=== PATIENT | male | born 1950 | race Caucasian/White ===

== ENCOUNTER 2019-05-28 08:04 | Observation (INO) ==
--- NOTE | 2019-05-28 08:16 | Emergency Department Note ---
ED Disposition Clinical Impression: Acute pain of right knee, Morbid obesity, Intractable pain Sprain of right knee Qualifiers: Encounter type: initial encounter Involved ligament of knee: unspecified ligament Qualified Code(s): S83.91XA - Sprain of unspecified site of right knee, initial encounter Fall with injury Qualifiers: Encounter type: initial encounter Qualified Code(s): W19.XXXA - Unspecified fall, initial encounter Disposition: Admitted as Observation Condition on Discharge: Good Referrals: Dionte Nice MD [Staff Physician] - Time of Disposition: 09:16 - Critical Care Critical Care Time: No Attestation: On , the high probability of a clinically significant, sudden or life threatening deterioration of the following system(s) required my full and direct attention, intervention and personal management. The time I documented below is in addition to time spent performing reported procedures but includes the following listed in this critical care notation. Medical Decision Making - Medical Records Medical records reviewed: Yes: I reviewed the patient's medical records. - Zack Inquiry Pt receiving controlled substance: No Zack was queried for this patient: No Vital Signs: 05/28/19 08:05 05/28/19 08:22 Temperature 97.8 F Temperature Source Oral Pulse Rate [Right Radial] 111 H 98 H Respiratory Rate 20 Blood Pressure [Right Arm] 139/62 130/74 Blood Pressure Mean [Right Arm] 87 92 Blood Pressure Source [Right Arm] Automatic Cuff Automatic Cuff Blood Pressure Position [Right Arm] Sitting Supine 02 Sat by Pulse Oximetry 96 94 L Oxygen Delivery Method Room Air Room Air Orders (Tests/Meds): ED MEDICATIONS Discontinued Medications Generic Name Dose Route Start Last Admin Trade Name Freq PRN Reason Stop Dose Admin Naproxen 500 mg 05/28/19 08:50 05/28/19 09:03 Naprosyn 500mg Tablet PO 05/28/19 08:51 500 mg ONCE ONE Administration - Radiology Data #1 Image(s): Knee Image Reviewed: Yes I reviewed the patient's radiology image 08:42 Right knee x-ray preliminary reading by myself: No cortical changes/fracture noted; decreased joint space. Medical Decision Narrative: 08:19 Pt evaluated. X-rays of chest, pelvis and right knee ordered. 08:30 Pt refusing CXR and pelvis x-rays. Orders cancelled in light of pt's protest. 08:43 I have reviewed x-ray of right knee and no acute findings noted. Clinically, pt has sprained his knee and may possibly have meniscal injury. He is not a candidate for a knee immobilizer. I have ordered Naproxen 500 mg PO for pt at this time. Pt is unable to weight bear/ambulate on that right knee and is therefore bed ridden at this time. I will discuss case with his PCP Dr. Nice regarding care plan. 09:04 I have discussed case with Dr. Nice and he has asked that I get hold of care management to evaluate this patient for direct placement to a care facility. 09:17 [facility] care management is recommending that this patient be admitted to the hospital for PT evaluation; and then further follow-up with his [employer] insurance regarding possible short-term placement. I have contacted Dr. Nice again regarding admission. Fall HPI - General Chief Complaint: Fall Stated Complaint: fall, pain Time Seen by Provider: 05/28/19 08:05 Mode of Arrival: EMS Source of Information: Patient Limitations: No Limitations Description of Symptoms (Recalled from ER Triage Doc. by RN): Pt reports 2 falls within the past week. Pt reports bill knee pain, especially his R knee, R hip pain and soo elbow pain. Pt reports he is tripping causing him to fall. - History of Present Illness HPI Narrative: Pt is here in the ER from home by ambulance for evaluation c/o left knee pain. Pt states that he fell at home about 4 a.m. trying to ambulate with crutches. Pt apparently fell 2 weeks ago at home, and strained his right knee at that time. He has been using crutches since that time. He did not see a health provider after that fall. He denies head injury, neck pain, chest pain, sob, abdominal pain, pelvis pain, hip pain. Only complaint is bilateral right knee pain. - Related Data Allergies Allergy/AdvReac Type Severity Reaction Status Date / Time No Known Allergies Allergy Verified 05/28/19 08:14 [facility] History - Hepatitis A Screen Drug use history?: No High risk sexual behaviors?: No History of sexually transmitted infection?: No Currently employed?: No Childcare worker?: No Do you have indoor plumbing?: Yes Do you have electricity?: Yes Attestation statement:: This patient has been screened for Hepatitis A risk factors. I have reviewed the patient's past medical history: Yes Medical History: Reports:: Diabetes Mellitus Type 2 - Social History Alcohol Intake: never Occupational Status: other ROS Obtained: Yes All systems reviewed & no additional complaints - Constitutional Constitutional: Reports system reviewed and no additional complaints, except as docu - Eyes Eyes: Reports system reviewed and no additional complaints, except as docu - ENT Ears, Nose, Mouth, and Throat: Reports system reviewed and no additional complaints, except as docu - Cardiovascular Cardiovascular: Reports system reviewed and no additional complaints, except as docu - Respiratory Respiratory: Yes system reviewed and no additional complaints, except as docu - Gastrointestinal Gastrointestingal: Reports: system reviewed and no additional complaints, except as docu - Genitourinary Male Genitourinary: Reports system reviewed and no additional complaints, except as docu - Musculoskeletal Musculoskeletal: Reports system reviewed and no additional complaints, except as docu, Reports as per HPI, Denies back pain, Denies deformity, Denies joint swelling, Denies neck pain, Denies numbness, Reports other (right knee pain) - Integumentary/Breasts Skin/Breast: Reports system reviewed and no additional complaints, except as docu - Neurologic Neurologic: Reports system reviewed and no additional complaints, except as docu - Endocrine Endocrine: Reports system reviewed and no additional complaints, except as docu - Hematologic/Lymphatic Henatologic/Lymphatic: Reports system reviewed and no additional complaints, except as docu - Allergic/Immunologic Allergic/Immunologic: Reports system reviewed and no additional complaints, except as docu Physical Exam - General General appearance: alert, in no apparent distress, obese (morbidly) - Head Head exam: atraumatic, normocephalic, normal inspection - Eye Eye exam: Present: PERRL, EOMI - ENT ENT exam: Present: mucous membranes moist, other (No otic or nasal discharge.) - Neck Neck exam: Present: trachea midline - Chest Chest inspection: Present: normal inspection, symmetric chest wall rise - Respiratory Respiratory exam: Present: normal lung sounds bilaterally, respiratory distress. Absent: wheezes - Cardiovascular Cardiovascular exam: Present: regular rate, normal heart sounds - Abdominal Exam Abdominal exam: Present: soft, normal bowel sounds. Absent: tenderness, guarding, rebound, rigidity - Extremities Exam Extremities exam: Present: normal capillary refill, other (Pelvis: stable, no rock or crepitus. Right knee: (+) MJL and LJL pain. No crepitus or deformity noted. No patella pain on palpation. No erythema or contusion. Negative Audra's test. No valgus or varus deformities or laxity.). Absent: calf tenderness - Back Exam Back exam: Absent: tenderness - Neurological Exam Neurological exam: Present: alert, oriented X3, CN II-XII intact - Psychiatric Psychiatric exam: Present: normal affect, normal mood - Skin Skin exam: Present: warm, dry, intact. Absent: rash, erythema
[2019-05-28 09:52] LABS: Basophils # 0.1 K/mm3 (0-0.2); Basophils % 0.7 % (0.1-2.0); Eosinophils # 0.3 K/mm3 (0.0-0.4); Eosinophils % 3.6 % (0.1-12.0); Hematocrit 35.7 % (42.0-52.0); Hemoglobin 10.4 g/dL (14.1-18.0); Lymphocytes # 1.3 K/mm3 (0.7-4.5); Mean Corpuscular HGB Conc 29.2 g/dL (31.8-35.4); Mean Corpuscular Volume 84.9 fl (80-94); Mean Platelet Volume 7.6 fl (7.4-10.4); Monocytes # 0.5 K/mm3 (0.1-1.0); Monocytes % 5.9 % (1.7-9.3); Neutrophils # 5.5 K/mm3 (1.8-7.8); Neutrophils % 72.8 % (37.0-80.0); Platelet Count 181 K/mm3 (142-424); Red Blood Count 4.21 M/mm3 (4.60-6.20); Red Cell Distribution Width 15.8 % (11.5-17.5); White Blood Count 7.6 K/mm3 (4.8-10.8)
[2019-05-28 10:12] LABS: Albumin/Globulin Ratio 0.7 (1.1-1.8); Anion Gap 14.2 mEq/L (5-15); Bilirubin,Total 0.4 mg/dL (0.2-1.0); Calcium 8.7 mg/dL (8.5-10.1); Globulin 4.4 gm/dl (1.3-3.2); Total Protein,Serum 7.4 gm/dL (6.4-8.2)
--- NOTE | 2019-05-28 10:27 | Pharmacy Consult Notes ---
[facility] Pharmacy VTE Monitoring - Patient Demographics Admission date: 05/28/19 Report Date: 05/28/19 Time: 10:27 Allergies/Adverse Reactions: Patient Allergies No Known Allergies Allergy (Verified 05/28/19 08:14) Height: 1.88 m Weight: 196.2 kg Patient Problems: Current Active Problems Acute pain of right knee (Acute) Sprain of right knee (Acute) Fall with injury (Acute) Morbid obesity (Acute) Intractable pain (Acute) - VTE Risk Labs: VTE Related Lab Results Hgb 10.4 g/dL (14.1-18.0) L 05/28/19 09:35 Hct 35.7 % (42.0-52.0) L 05/28/19 09:35 Plt Count 181 K/mm3 (142-424) 05/28/19 09:35 BUN 17 mg/dL (7-18) 05/28/19 09:35 Creatinine 1.10 mg/dL (0.70-1.30) 05/28/19 09:35 Estimated Creat Clear 74 mL/min (50-200) 05/28/19 09:35 Was VTE Risk Assessment Performed: Yes VTE Score: 5 VTE Risk Level: Low Risk - Prophylaxis VTE Prophylaxis Ordered?: Yes Types of VTE Prophylaxis: TEDS Knee High Location of Applied Device: Bilateral Lower Extremeties
[2019-05-29 06:13] LABS: Microscopic, Urine URINE MICROSCOPIC (MICROSCOPIC)
[2019-05-29 06:22] LABS: Appearance,Urine CLEAR (Clear); Bilirubin,Urine Negative (Negative); Blood, Urine Negative (Negative); Color,Urine YELLOW (Yellow); Glucose,Urine (UA) Negative (Negative); Ketones,Urine Negative (Negative); Leukocyte Esterase,Urine Negative (Negative); Protein,Urine Negative (Negative); Urobilinogen,Urine 0.2 EU/dl (0.2)
--- NOTE | 2019-05-29 08:32 | H&P/Discharge Summary ---
<Urvashi Ayala - Last Filed: 05/29/19 08:26> General - General Admission date:: 05/28/19 Discharge date: 05/29/19 *Admission Date: 05/28/19 *Chief complaint: Right knee pain *History of present illness: Mr. 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 after falling 3 times in the past 3 days and hurting his right knee. The first time he fell 3 days ago there was no trauma. The second time he tripped over something in his apartment and fell. The third time his right knee gave away. EMS did come to his home and helped him after the falls. He requested to come to the emergency room after the third fall. He states he could not walk. He could not even go to the bathroom. He does have a history of falling about 3 weeks ago. He was walking with crutches with resolution of the right knee pain. And then he began to fall again. X-ray of the right knee in the ER revealed no fracture. He was admitted for pain control and further evaluation. Since admission patient states he has been able to walk after receiving the pain medicine. He has been using a walker and feels he has been very stable. He is eating well. He did vomit once yesterday after eating fish. After vomiting he had no further nausea. He is voiding QS. And he describes controlled pain of the right knee. [facility] History Medical History: Reports:: Diabetes Mellitus Type 2, Hyperlipidemia, Hypertension *Have you ever received a pneumonia vaccine?: No *Have you received a flu vaccine this season?: No Other Medical History: Reports: Anemia, Cataracts, Glaucoma Comment: Several right surgeries - *Social History Alcohol Intake: never *Occupational Status:: retired, disabled, other Household Members: family *Travel in the last 8 weeks: None Family Hx:: Cancer, Diabetes, Hypertension Review of Systems - Constitutional Denies headache(s), Denies weakness - Eyes Denies change in vision Comments: Blind in the right eye - ENT Denies ear pain, Denies headache(s), Denies sore throat - *Cardiovascular Reports leg swelling (Right legs sometimes swells for which she takes Lasix as needed), Denies chest pain, Denies shortness of breath - *Respiratory Denies chest congestion, Denies cough, Denies shortness of breath - *Gastrointestinal Denies abdominal pain, Denies bloating, Denies change in bowel habits, Denies heartburn, Denies heartburn, Denies vomiting blood, Denies black, tarry stools, Denies nausea, Denies vomiting Comments: Does see blood in his stools at times and relates this to his hemorrhoids - *Musculoskeletal Reports joint pain (Right knee) Comments: States he uses a walker - Integumentary/Breasts Comments: History of cellulitis of the right leg - *Neurologic Denies seizure-like activity, Denies numbness, Denies dizziness Exam Vital signs and Labs for Last 24 Hours: Temp Pulse Resp BP Pulse Ox 97.9 F 43 L 18 136/53 L 93 L 05/29/19 07:54 05/29/19 07:54 05/29/19 07:54 05/29/19 07:54 05/29/19 07:54 Laboratory Results - last 24 hr 05/28/19 09:35: WBC 7.6, RBC 4.21 L, Hgb 10.4 L, Hct 35.7 L, MCV 84.9, MCH 24.8 L, MCHC 29.2 L, RDW 15.8, Plt Count 181, MPV 7.6, Neut % (Auto) 72.8, Lymph % (Auto) 17.0, [place] % (Auto) 5.9, Eos % (Auto) 3.6, Baso % (Auto) 0.7, Neut # (Auto) 5.5, Lymph # (Auto) 1.3, [place] # (Auto) 0.5, Eos # (Auto) 0.3, Baso # (Auto) 0.1 05/28/19 09:35: Sodium 142, Potassium 5.2 H, Chloride 103, Carbon Dioxide 30, Anion Gap 14.2, BUN 17, Creatinine 1.10, Estimated Creat Clear 74, Estimated GFR 66, Est GFR ( Amer) 80, Glucose 145 H, Calcium 8.7, Total Bilirubin 0.4, AST 8 L, ALT 8 L, Alkaline Phosphatase 115, Total Protein 7.4, Albumin 3.0 L, Globulin 4.4 H, Albumin/Globulin Ratio 0.7 L, Lipase 149 05/28/19 12:09: POC Glucose 137 H 05/28/19 16:03: POC Glucose 166 H 05/28/19 20:12: POC Glucose 164 H 05/29/19 05:51: POC Glucose 169 H 05/29/19 06:00: Urine Color Yellow, Urine Appearance Clear, Urine pH 6.0, Ur Specific [place] 1.020, Urine Protein Negative, Urine Glucose (UA) Negative, Urine Ketones Negative, Urine Blood Negative, Urine Nitrate Negative, Urine Bilirubin Negative, Urine Urobilinogen 0.2, Ur Leukocyte Esterase Negative, Urine RBC 5-10, Urine WBC 3-5, Ur Squamous Epith Cells 3-5, Urine Bacteria None I & O for Last 24 hours: Intake & Output 05/26/19 05/27/19 05/28/19 05/29/19 11:59 11:59 11:59 11:59 Intake Total 1820 / 1820 Output Total 600 / 600 Balance 1220 / 1220 Weight 432 lb 8.751 oz 435 lb Radiology Reports for the Last 24 Hours: 05/28/2019 x-ray of the right knee IMPRESSION: Minor degenerative changes as noted, no acute fracture seen - Constitutional no acute distress, morbidly obese Comments: Sitting in bedside recliner. Appears comfortable. - *Routine HEENT Exam Head: Present: normocephalic, atraumatic Eye: Present: PERRL. Absent: conjunctival icterus, scleral injection ENT: Present: mucous membranes moist, oropharynx clear - *Routine Neck Exam Present: supple. Absent: carotid bruit, lymphadenopathy, thyromegaly - *Routine Respiratory Exam Present: CTA bilaterally (Anteriorly and posteriorly) - *Routine Cardiovascular Exam Present: RRR - *Routine Abdominal Exam Present: soft, normoactive bowel sounds, obese. Absent: tenderness - *Routine Extremities Exam Present: edema (Bilateral pitting). Absent: calf tenderness - *Routine Neurological Exam Present: alert, oriented X3 Hospital Course Hospital Course: On admission patient was started on [place] 5/325. This controlled his pain and he was able to walk with a walker without difficulty. He felt very steady and was able to walk to the bathroom with only standby observation. He felt he was ready to go home. Patient will be discharged home with follow-up with Dr. Nice in the office. He will continue with his home meds as per reconciliation sheet with addition of pain medicine. He was instructed to use his walker at home. Results Labs on day of discharge: Labs from last 24 hours 05/29/19 05/29/19 05/28/19 06:00 05:51 20:12 WBC RBC Hgb Hct MCV MCH MCHC RDW Plt Count MPV Neut % (Auto) Lymph % (Auto) [place] % (Auto) Eos % (Auto) Baso % (Auto) Neut # (Auto) Lymph # (Auto) [place] # (Auto) Eos # (Auto) Baso # (Auto) Sodium Potassium Chloride Carbon Dioxide Anion Gap BUN Creatinine Estimated Creat Clear Estimated GFR Est GFR ( Amer) Glucose POC Glucose 169 H 164 H Calcium Total Bilirubin AST ALT Alkaline Phosphatase Total Protein Albumin Globulin Albumin/Globulin Ratio Lipase Urine Color Yellow Urine Appearance Clear Urine pH 6.0 Ur Specific [place] 1.020 Urine Protein Negative Urine Glucose (UA) Negative Urine Ketones Negative Urine Blood Negative Urine Nitrate Negative Urine Bilirubin Negative Urine Urobilinogen 0.2 Ur Leukocyte Esterase Negative Urine RBC 5-10 Urine WBC 3-5 Ur Squamous Epith Cells 3-5 Urine Bacteria None 05/28/19 05/28/19 05/28/19 16:03 12:09 09:35 WBC RBC Hgb Hct MCV MCH MCHC RDW Plt Count MPV Neut % (Auto) Lymph % (Auto) [place] % (Auto) Eos % (Auto) Baso % (Auto) Neut # (Auto) Lymph # (Auto) [place] # (Auto) Eos # (Auto) Baso # (Auto) Sodium 142 Potassium 5.2 H Chloride 103 Carbon Dioxide 30 Anion Gap 14.2 BUN 17 Creatinine 1.10 Estimated Creat Clear 74 Estimated GFR 66 Est GFR ( Amer) 80 Glucose 145 H POC Glucose 166 H 137 H Calcium 8.7 Total Bilirubin 0.4 AST 8 L ALT 8 L Alkaline Phosphatase 115 Total Protein 7.4 Albumin 3.0 L Globulin 4.4 H Albumin/Globulin Ratio 0.7 L Lipase 149 Urine Color Urine Appearance Urine pH Ur Specific [place] Urine Protein Urine Glucose (UA) Urine Ketones Urine Blood Urine Nitrate Urine Bilirubin Urine Urobilinogen Ur Leukocyte Esterase Urine RBC Urine WBC Ur Squamous Epith Cells Urine Bacteria 05/28/19 09:35 WBC 7.6 RBC 4.21 L Hgb 10.4 L Hct 35.7 L MCV 84.9 MCH 24.8 L MCHC 29.2 L RDW 15.8 Plt Count 181 MPV 7.6 Neut % (Auto) 72.8 Lymph % (Auto) 17.0 [place] % (Auto) 5.9 Eos % (Auto) 3.6 Baso % (Auto) 0.7 Neut # (Auto) 5.5 Lymph # (Auto) 1.3 [place] # (Auto) 0.5 Eos # (Auto) 0.3 Baso # (Auto) 0.1 Sodium Potassium Chloride Carbon Dioxide Anion Gap BUN Creatinine Estimated Creat Clear Estimated GFR Est GFR ( Amer) Glucose POC Glucose Calcium Total Bilirubin AST ALT Alkaline Phosphatase Total Protein Albumin Globulin Albumin/Globulin Ratio Lipase Urine Color Urine Appearance Urine pH Ur Specific [place] Urine Protein Urine Glucose (UA) Urine Ketones Urine Blood Urine Nitrate Urine Bilirubin Urine Urobilinogen Ur Leukocyte Esterase Urine RBC Urine WBC Ur Squamous Epith Cells Urine Bacteria DS: Diagnosis - Discharge Diagnosis (1) Sprain of right knee Status: Acute (2) Acute pain of right knee Status: Acute (3) Fall with injury Status: Acute (4) Intractable pain Status: Acute (5) Morbid obesity Status: Chronic Discharge Plan - Patient Discharge Instructions Patient Instructions: Overweight in Adults, DI for Chronic Pain -- Adult, DI for Knee Pain - Follow up Plan Follow up with: Dionte Nice MD [Primary Care Provider] - 06/05/19 2:00 pm Disposition: Home, Self-Senior Care Medications: Home Medications Medication Instructions Recorded Confirmed Type Insulin Aspart Prot/Insuln Asp 25 unit SQ BID 05/28/19 05/28/19 History [Insulin Aspart Prot-Insuln Asp] Metformin HCl [Metformin 1000mg 500 mg PO TID 05/28/19 05/28/19 History Tablets] Simvastatin 40 mg PO HS 05/28/19 05/28/19 History lisinopriL [Lisinopril 20mg Tab] 20 mg PO DAILY 05/28/19 05/28/19 History Diclofenac Sodium [Diclofenac 75mg 75 mg PO BID #60 tab 05/29/19 Rx Tab] Hydrocod/Acet 5/325 mg [[place] 1 tab PO TID PRN #24 tab 05/29/19 Rx 5/325mg tablet] Prescriptions/Medication Reconciliation: New Hydrocod/Acet 5/325 mg [[place] 5/325mg tablet] 1 tab PO TID PRN #24 tab PRN Reason: Moderate To Severe Pain Diclofenac Sodium [Diclofenac 75mg Tab] 75 mg PO BID #60 tab Continued Simvastatin 40 mg PO HS Insulin Aspart Prot/Insuln Asp [Insulin Aspart Prot-Insuln Asp] 25 unit SQ BID Metformin HCl [Metformin 1000mg Tablets] 500 mg PO TID lisinopriL [Lisinopril 20mg Tab] 20 mg PO DAILY - Problem Reconciliation Problems Reviewed?: Yes <Dionte Nice - Last Filed: 05/29/19 17:14> General - General Admission date:: 05/28/19 Exam Vital signs and Labs for Last 24 Hours: Temp Pulse Resp BP Pulse Ox 97.9 F 43 L 18 136/53 L 93 L 05/29/19 07:54 05/29/19 07:54 05/29/19 07:54 05/29/19 07:54 05/29/19 08:00 Laboratory Results - last 24 hr 05/28/19 20:12: POC Glucose 164 H 05/29/19 05:51: POC Glucose 169 H 05/29/19 06:00: Urine Color Yellow, Urine Appearance Clear, Urine pH 6.0, Ur Specific [place] 1.020, Urine Protein Negative, Urine Glucose (UA) Negative, Urine Ketones Negative, Urine Blood Negative, Urine Nitrate Negative, Urine Bilirubin Negative, Urine Urobilinogen 0.2, Ur Leukocyte Esterase Negative, Urine RBC 5-10, Urine WBC 3-5, Ur Squamous Epith Cells 3-5, Urine Bacteria None I & O for Last 24 hours: Intake & Output 05/27/19 05/28/19 05/29/19 05/30/19 11:59 11:59 11:59 11:59 Intake Total 1820 / 1820 Output Total 600 / 600 Balance 1220 / 1220 Weight 432 lb 8.751 oz 435 lb Results Labs on day of discharge: Labs from last 24 hours 05/29/19 05/29/19 05/28/19 06:00 05:51 20:12 POC Glucose 169 H 164 H Urine Color Yellow Urine Appearance Clear Urine pH 6.0 Ur Specific [place] 1.020 Urine Protein Negative Urine Glucose (UA) Negative Urine Ketones Negative Urine Blood Negative Urine Nitrate Negative Urine Bilirubin Negative Urine Urobilinogen 0.2 Ur Leukocyte Esterase Negative Urine RBC 5-10 Urine WBC 3-5 Ur Squamous Epith Cells 3-5 Urine Bacteria None DS: Diagnosis - Discharge Diagnosis (1) Sprain of right knee Status: Acute (2) Acute pain of right knee Status: Acute (3) Fall with injury Status: Acute (4) Intractable pain Status: Acute (5) Morbid obesity Status: Chronic Discharge Plan - Problem Reconciliation Problems Reviewed?: Yes - Additional Information Additional Information: Patient seen and examined. Concur with assessment and plan for discharge. He declines home PT.
== END 2019-05-29 10:45 | disposition home or self-care (01) ==
LOC: ER 08:04 → 2ND 08:04
PROVIDERS: ADMIT Family Medicine; ATTEND Family Medicine
CPT/HCPCS: 73562; 80053; 81001; 82962; 83690; 85025; 96374; 99284; G0378

== ENCOUNTER 2019-05-31 23:32 | Observation (INO) ==
--- NOTE | 2019-05-31 23:49 | Emergency Department Note ---
ED Disposition Clinical Impression: Acute hyperkalemia, NIDA (acute kidney injury), Morbid obesity A-fib Qualifiers: Atrial fibrillation type: unspecified Qualified Code(s): I48.91 - Unspecified atrial fibrillation Disposition: Admitted as Observation Condition on Discharge: Fair Instructions: DI for Diarrhea and Traveler's Diarrhea -- Adult, DI for Diarrhea and Traveler's Diarrhea -- Child, DI for Nausea -- Adult, DI for Nausea -- Child Referrals: Provider,Referral, [Primary Care Provider] - - Critical Care Critical Care Time: No Attestation: On 05/31/19, the high probability of a clinically significant, sudden or life threatening deterioration of the following system(s) required my full and direct attention, intervention and personal management. The time I documented below is in addition to time spent performing reported procedures but includes the following listed in this critical care notation. Medical Decision Making - Medical Records Medical records reviewed: Yes: I reviewed the patient's medical records. - Zack Inquiry Pt receiving controlled substance: No Vital Signs: 05/31/19 23:34 Temperature 98.2 F Temperature Source Oral Pulse Rate [Right Brachial] 99 H Respiratory Rate 26 H Blood Pressure [Right Arm] 109/53 L Blood Pressure Mean [Right Arm] 71 Blood Pressure Source [Right Arm] Automatic Cuff Blood Pressure Position [Right Arm] Sitting 02 Sat by Pulse Oximetry 97 Oxygen Delivery Method Room Air - Lab Data Lab results reviewed: Yes: I reviewed the patient's lab results. Lab Results 05/31/19 23:45: WBC 7.7, RBC 4.21 L, Hgb 10.5 L, Hct 36.3 L, MCV 86.2, MCH 24.9 L, MCHC 28.9 L, RDW 16.3, Plt Count 205, MPV 7.9, Neut % (Auto) 74.8, Lymph % (Auto) 14.9, [place] % (Auto) 6.3, Eos % (Auto) 3.4, Baso % (Auto) 0.6, Neut # (Auto) 5.8, Lymph # (Auto) 1.1, [place] # (Auto) 0.5, Eos # (Auto) 0.3, Baso # (Auto) 0.1 05/31/19 23:45: Sodium 135 L, Potassium 6.5 H*, Chloride 101, Carbon Dioxide 27, Anion Gap 13.5, BUN 35 H, Creatinine 1.88 H, Estimated Creat Clear 43, Estimated GFR 36 L, Est GFR ( Amer) 43 L, Glucose 148 H, Calcium 8.4 L, Total Bilirubin 0.4, AST 11 L, ALT 10 L, Alkaline Phosphatase 124 H, Troponin I < 0.02, Total Protein 7.6, Albumin 3.1 L, Globulin 4.5 H, Albumin/Globulin Ratio 0.7 L, Amylase 31, Lipase 88 06/01/19 00:30: Potassium 6.8 H* Result diagrams: 05/31/19 23:45 06/01/19 00:30 Orders (Tests/Meds): ED MEDICATIONS Generic Name Dose Route Start Last Admin Trade Name Freq PRN Reason Stop Dose Admin Sodium Chloride 1,000 mls @ 999 mls/hr 05/31/19 23:45 05/31/19 23:44 Sod Chlor 0.9% 1000ml Bag IV 06/01/19 00:45 999 mls/hr .Q1H1M EVETTE Administration Discontinued Medications Generic Name Dose Route Start Last Admin Trade Name Freq PRN Reason Stop Dose Admin Albuterol/Ipratropium 3 ml 06/01/19 00:43 06/01/19 00:52 Duoneb 3ml Neb IH 06/01/19 00:44 3 ml ONCE ONE Administration Dextrose 50 ml 06/01/19 00:42 Dextrose 50% 50ml Syringe IVP 06/01/19 00:43 ONCE ONE Insulin Human Regular 5 unit 06/01/19 00:42 Humulin R Insulin 100 Units/Ml 10ml Vial IVP 06/01/19 00:43 ONCE ONE Ondansetron HCl 4 mg 05/31/19 23:40 05/31/19 23:44 Zofran 4mg/2ml Vial IV 05/31/19 23:41 4 mg ONCE ONE Administration Sodium Polystyrene Sulfonate 15 gm 06/01/19 00:42 Kayexalate 15gm/60ml Bottle PO 06/01/19 00:43 ONCE ONE ORDERS Category Date Time Status CT abdomen pelvis wo con Stat Cat Scan 05/31/19 23:50 Ordered Troponin I Q3H Lab 06/01/19 02:45 Ordered Troponin I Q3H Lab 06/01/19 05:45 Ordered Urinalysis and Microscopic Stat Lab 06/01/19 00:04 Ordered ECG Request by /Gagandeep Stat Y 05/31/19 23:39 Ordered - ECG Data Tracing #1 Arrhythmias present: afib Ischemic changes: non-specific ST-T wave changes - Physician Consults Physician Consulted: ivania Reason -: Admission Nausea/Vomiting/Diarrhea HPI - General Chief complaint: Nausea/Vomiting/Diarrhea Stated complaint: N/V Time Seen by Provider: 05/31/19 23:45 Mode of Arrival: EMS Source of Information: Patient, EMS, Medical Record Limitations: No Limitations Description of Symptoms (Recalled from ER Triage Doc. by RN): Pt c/o n/v and constipation. No other symptoms reported at this time. - History of Present Illness HPI Narrative: pt reports not feeling well with dec po intake - pt with vomiting but no diarrhea - he had recent admit for knee pain - he has hx of diabetes and htn - he denied any hx of cardiac arrthymia MD complaint: nausea, vomiting, abdominal pain Onset (ago): day(s) Associated Abdominal Pain: Yes Location of pain: diffuse Severity: moderate Quality: cramping Consistency: intermittent Associated symptoms: denies other symptoms - Related Data Home Medications Medication Instructions Recorded Confirmed Insulin Aspart Prot/Insuln Asp 25 unit SQ BID 05/28/19 06/01/19 [Insulin Aspart Prot-Insuln Asp] Metformin HCl [Metformin 1000mg 500 mg PO TID 05/28/19 06/01/19 Tablets] Simvastatin 40 mg PO HS 05/28/19 06/01/19 lisinopriL [Lisinopril 20mg Tab] 20 mg PO DAILY 05/28/19 06/01/19 Diclofenac Sodium [Diclofenac 75mg 75 mg PO BID 06/01/19 06/01/19 Tab] Previous Rx's Medication Instructions Recorded Hydrocod/Acet 5/325 mg [[place] 1 tab PO TID PRN #24 tab 05/29/19 5/325mg tablet] Allergies Allergy/AdvReac Type Severity Reaction Status Date / Time No Known Allergies Allergy Verified 05/28/19 08:14 [facility] History - Hepatitis A Screen Drug use history?: No High risk sexual behaviors?: No History of sexually transmitted infection?: No Currently employed?: No Childcare worker?: No Do you have indoor plumbing?: Yes Do you have electricity?: Yes Attestation statement:: This patient has been screened for Hepatitis A risk factors. I have reviewed the patient's past medical history: Yes Medical History: Reports:: Diabetes Mellitus Type 2, Hyperlipidemia, Hyperten luis enrique Other Medical History: Reports: Anemia, Cataracts, Glaucoma Comment: Several right surgeries - Social History Alcohol Intake: never Occupational Status: retired, disabled, other Housing: house Household Members: family Family Hx:: Cancer, Diabetes, Hypertension ROS Obtained: Yes All systems reviewed & no additional complaints - Constitutional Constitutional: Denies fever(s) - Eyes Eyes: Denies change in vision - ENT Ears, Nose, Mouth, and Throat: Denies sore throat - Cardiovascular Cardiovascular: Denies chest pain - Respiratory Respiratory: No cough - Gastrointestinal Gastrointestingal: Reports: as per HPI, abdominal pain, nausea, vomiting. Denies: diarrhea - Genitourinary Male Genitourinary: Denies hematuria - Musculoskeletal Musculoskeletal: Reports as per HPI, Reports joint pain, Denies joint swelling, Reports limited range of motion - Integumentary/Breasts Skin/Breast: Denies rash - Neurologic Neurologic: Denies seizure-like activity Physical Exam - General General appearance: alert, obese - Head Head exam: normocephalic - Eye Eye exam: Present: PERRL, EOMI. Absent: scleral icterus - ENT ENT exam: Present: mucous membranes dry - Neck Neck exam: Present: trachea midline - Respiratory Respiratory exam: Present: other (dec bs bilat ). Absent: respiratory distress - Cardiovascular Cardiovascular exam: Present: irregular rhythm - Abdominal Exam Abdominal exam: Present: soft. Absent: rebound - Extremities Exam Extremities exam: Present: pedal edema, other (rt index finger ariella but imp roved with stimulation ) - Neurological Exam Neurological exam: Present: alert, oriented X3, CN II-XII intact - Psychiatric Psychiatric exam: Present: normal affect - Skin Skin exam: Absent: rash
[2019-05-31 23:52] LABS: Basophils # 0.1 K/mm3 (0-0.2); Basophils % 0.6 % (0.1-2.0); Eosinophils # 0.3 K/mm3 (0.0-0.4); Eosinophils % 3.4 % (0.1-12.0); Hematocrit 36.3 % (42.0-52.0); Hemoglobin 10.5 g/dL (14.1-18.0); Lymphocytes # 1.1 K/mm3 (0.7-4.5); Lymphocytes % 14.9 % (10-50); Mean Corpuscular HGB Conc 28.9 g/dL (31.8-35.4); Mean Corpuscular Volume 86.2 fl (80-94); Mean Platelet Volume 7.9 fl (7.4-10.4); Monocytes # 0.5 K/mm3 (0.1-1.0); Monocytes % 6.3 % (1.7-9.3); Neutrophils # 5.8 K/mm3 (1.8-7.8); Neutrophils % 74.8 % (37.0-80.0); Platelet Count 205 K/mm3 (142-424); Red Blood Count 4.21 M/mm3 (4.60-6.20); Red Cell Distribution Width 16.3 % (11.5-17.5); White Blood Count 7.7 K/mm3 (4.8-10.8)
[2019-06-01 00:17] LABS: Alanine Aminotransferase 10 U/L (12-78); Albumin Level 3.1 gm/dL (3.4-5.0); Albumin/Globulin Ratio 0.7 (1.1-1.8); Alkaline Phosphatase 124 U/L (46-116); Amylase 31 U/L (25-115); Anion Gap 13.5 mEq/L (5-15); Aspartate Amino Transferase 11 U/L (15-37); Bilirubin,Total 0.4 mg/dL (0.2-1.0); Blood Urea Nitrogen 35 mg/dL (7-18); Calcium 8.4 mg/dL (8.5-10.1); Carbon Dioxide 27 mmol/L (21.0-32.0); Chloride 101 mmol/L (98-107); Globulin 4.5 gm/dl (1.3-3.2); Glucose 148 mg/dL (74-106); Sodium 135 mmol/L (136-145); Total Protein,Serum 7.6 gm/dL (6.4-8.2)
[2019-06-01 07:01] LABS: Microscopic, Urine URINE MICROSCOPIC (MICROSCOPIC)
[2019-06-01 07:05] LABS: Appearance,Urine CLEAR (Clear); Bilirubin,Urine Negative (Negative); Blood, Urine Negative (Negative); Color,Urine YELLOW (Yellow); Glucose,Urine (UA) Negative (Negative); Ketones,Urine Negative (Negative); Leukocyte Esterase,Urine Negative (Negative); PH,Urine 6.5 (5.0-8.5); Protein,Urine Negative (Negative)
--- NOTE | 2019-06-01 07:08 | Pharmacy Consult Notes ---
[facility] Pharmacy VTE Monitoring - Patient Demographics Admission date: 06/01/19 Report Date: 06/01/19 Time: 07:08 Allergies/Adverse Reactions: Patient Allergies No Known Allergies Allergy (Verified 05/28/19 08:14) Height: 1.88 m Weight: 197.313 kg Patient Problems: Current Active Problems Morbid obesity (Chronic) Acute hyperkalemia (Acute) NIDA (acute kidney injury) (Acute) A-fib (Acute) - VTE Risk Labs: VTE Related Lab Results Hgb 10.5 g/dL (14.1-18.0) L 05/31/19 23:45 Hct 36.3 % (42.0-52.0) L 05/31/19 23:45 Plt Count 205 K/mm3 (142-424) 05/31/19 23:45 BUN 32 mg/dL (7-18) H 06/01/19 06:03 Creatinine 1.76 mg/dL (0.70-1.30) H 06/01/19 06:03 Estimated Creat Clear 46 mL/min (50-200) 06/01/19 06:03 VTE Score: 5 VTE Risk Level: Low Risk - Prophylaxis VTE Prophylaxis Ordered?: Yes Types of VTE Prophylaxis: TEDS Knee High Location of Applied Device: Bilateral Lower Extremeties
[2019-06-01 07:15] LABS: Bacteria,Urine Trace /lpf; Squamous Epithelial Cell,Urine Occasional #/hpf (0-5); WBC,Urine Occasional #/hpf (0-3)
[2019-06-01 07:23] LABS: Basophils % 0.6 % (0.1-2.0); Eosinophils # 0.2 K/mm3 (0.0-0.4); Eosinophils % 2.5 % (0.1-12.0); Hemoglobin 9.6 g/dL (14.1-18.0); Lymphocytes # 1.2 K/mm3 (0.7-4.5); Lymphocytes % 17.8 % (10-50); Mean Corpuscular Volume 87.1 fl (80-94); Mean Platelet Volume 8.3 fl (7.4-10.4); Monocytes # 0.4 K/mm3 (0.1-1.0); Monocytes % 6.3 % (1.7-9.3); Neutrophils # 4.9 K/mm3 (1.8-7.8); Neutrophils % 72.8 % (37.0-80.0); Platelet Count 180 K/mm3 (142-424); Red Blood Count 3.79 M/mm3 (4.60-6.20); Red Cell Distribution Width 16.2 % (11.5-17.5); White Blood Count 6.7 K/mm3 (4.8-10.8)
--- NOTE | 2019-06-01 08:33 | History & Physical Report ---
*Admission Date: 06/01/19 <Sandrine Carrillo 06/01/19 08:40> *Chief complaint: abdominal pain, vomiting, constipation <Sandrine Carrillo 06/01/19 08:40> *History of present illness: Mr. Shanks is a 69-year-old male who states he has had numerous falls in the last few weeks which has caused knee pain. He has been taking diclofenac prescription at home along with numerous other ejpy-eds-ifismrs "pain medications." When asked what medications he was taking, he said he did not know, they were just cheap [employer] pain pills. He did call into the office due to pain and states he was given a prescription for pain medication. He thinks the combination of all of this medication caused constipation and he went 5 days without a bowel movement. Yesterday he called the office and was told to take MiraLAX and Dulcolax. He states he started them but still had no bowel movement and then began vomiting. He states he vomited all day and therefore presented to the emergency room. His potassium was found to be elevated. He was admitted for observation and given Kayexalate and ant iemetics. The vomiting stopped and he has since had 3 bowel movements since admission. He states his stomach does feel better today, but is still sore in the lower quadrants. <Sandrine Carrillo 06/01/19 08:40> [facility] History I have reviewed the patient's past medical history: Yes <Sandrine Carrillo 06/01/19 08:40> Medical History: Reports:: Diabetes Mellitus Type 2, Hyperlipidemia, Hypertension Denies:: Cancer, MRSA <Sandrine Carrillo 06/01/19 08:40> *Have you ever received a pneumonia vaccine?: No <Sandrine Carrillo 06/01/19 08:40> *Have you received a flu vaccine this season?: No <Sandrine Carrillo 06/01/19 08:40> Other Medical History: Reports: Anemia, Cataracts, Glaucoma, Other (Chronic back pain, blind right eye) <Sandrine Carrillo 06/01/19 08:40> Other Surgeries: Yes: Other (eye surgery) <Sandrine Carrillo 06/01/19 08:40> Amputation: No <Sandrine Carrillo 06/01/19 08:40> - *Social History Educational Level: Attended [employer] <Sandrine Carrillo 06/01/19 08:40> Smoking Status: Never smoker <Sandrine Carrillo 06/01/19 08:40> Alcohol Intake: never <Sandrine Carrillo 06/01/19 08:40> *Occupational Status:: retired, disabled, other <Sandrine Carrillo 06/01/19 08:40> Housing: house <Sandrine Carrillo 06/01/19 08:40> Household Members: family <Sandrine Carrillo 06/01/19 08:40> *Travel in the last 8 weeks: None <Sandrine Carrillo 06/01/19 08:40> Family Hx:: Cancer, Diabetes, Hypertension <Sandrine Carrillo 06/01/19 08:40> Review of Systems - Constitutional Denies body ache(s), Denies chills, Denies fever(s) <Sandrine Carrillo 06/01/19 08:40> - Eyes Denies blurry vision, Denies double vision <Sandrine Carrillo 06/01/19 08:40> - ENT Denies nasal congestion, Denies sore throat <Sandrine Carrillo 06/01/19 08:40> - *Cardiovascular Denies chest pain, Denies shortness of breath <Sandrine Carrillo 06/01/19 08:40> - *Respiratory Denies cough, Denies shortness of breath <Sandrine Carrillo 06/01/19 08:40> - *Gastrointestinal Reports abdominal pain (lower abdomen), Reports nausea, Reports vomiting, Denies loose stools <Sandrine Carrillo 06/01/19 08:40> - *Genitourinary Denies difficulty urinating, Denies painful urination <Sandrine Carrillo 06/01/19 08:40> - *Musculoskeletal Reports joint pain (knee pain) <Sandrine Carrillo 06/01/19 08:40> - *Neurologic Reports headache(s), Reports dizziness, Denies seizure-like activity <Sandrine Carrillo 06/01/19 08:40> Meds Home Medications Medication Instructions Recorded Confirmed Type Insulin Aspart Prot/Insuln Asp 25 unit SQ BID 05/28/19 06/01/19 History [Insulin Aspart Prot-Insuln Asp] Metformin HCl [Metformin 1000mg 500 mg PO TID 05/28/19 06/01/19 History Tablets] Simvastatin 40 mg PO HS 05/28/19 06/01/19 History lisinopriL [Lisinopril 20mg Tab] 20 mg PO DAILY 05/28/19 06/01/19 History Hydrocod/Acet 5/325 mg [[place] 1 tab PO TID PRN #24 tab 05/29/19 06/01/19 Rx 5/325mg tablet] Diclofenac Sodium [Diclofenac 75mg 75 mg PO BID 06/01/19 06/01/19 History Tab] <Dionte Nice - 06/01/19 13:53> Allergies Allergy/AdvReac Type Severity Reaction Status Date / Time No Known Allergies Allergy Verified 05/28/19 08:14 <Dionte Nice - 06/01/19 13:53> Exam Vital signs and Labs for Last 24 Hours: Temp Pulse Resp BP Pulse Ox 98.1 F 91 H 20 114/58 L 94 L 06/01/19 11:12 06/01/19 11:12 06/01/19 11:12 06/01/19 11:12 06/01/19 11:12 Laboratory Results - last 24 hr 05/31/19 23:45: WBC 7.7, RBC 4.21 L, Hgb 10.5 L, Hct 36.3 L, MCV 86.2, MCH 24.9 L, MCHC 28.9 L, RDW 16.3, Plt Count 205, MPV 7.9, Neut % (Auto) 74.8, Lymph % (Auto) 14.9, [place] % (Auto) 6.3, Eos % (Auto) 3.4, Baso % (Auto) 0.6, Neut # (Auto) 5.8, Lymph # (Auto) 1.1, [place] # (Auto) 0.5, Eos # (Auto) 0.3, Baso # (Auto) 0.1 05/31/19 23:45: Sodium 135 L, Potassium 6.5 H*, Chloride 101, Carbon Dioxide 27, Anion Gap 13.5, BUN 35 H, Creatinine 1.88 H, Estimated Creat Clear 43, Estimated GFR 36 L, Est GFR ( Amer) 43 L, Glucose 148 H, Calcium 8.4 L, Total Bilirubin 0.4, AST 11 L, ALT 10 L, Alkaline Phosphatase 124 H, Troponin I < 0.02, Total Protein 7.6, Albumin 3.1 L, Globulin 4.5 H, Albumin/Globulin Ratio 0.7 L, Amylase 31, Lipase 88 06/01/19 00:30: Potassium 6.8 H* 06/01/19 02:45: Troponin I < 0.02 06/01/19 06:02: POC Glucose 139 H 06/01/19 06:03: Troponin I < 0.02 06/01/19 06:03: WBC 6.7, RBC 3.79 L, Hgb 9.6 L, Hct 33.0 L, MCV 87.1, MCH 25.3 L , MCHC 29.0 L, RDW 16.2, Plt Count 180, MPV 8.3, Neut % (Auto) 72.8, Lymph % (Auto) 17.8, [place] % (Auto) 6.3, Eos % (Auto) 2.5, Baso % (Auto) 0.6, Neut # (Auto) 4.9, Lymph # (Auto) 1.2, [place] # (Auto) 0.4, Eos # (Auto) 0.2, Baso # (Auto) 0.0 06/01/19 06:03: Sodium 137, Potassium 6.0 H, Chloride 104, Carbon Dioxide 26, Anion Gap 13.0, BUN 32 H, Creatinine 1.76 H, Estimated Creat Clear 46, Estimated GFR 39 L, Est GFR ( Amer) 47 L, Glucose 141 H, Calcium 8.0 L, Magnesium 1.9 06/01/19 06:45: Urine Color Yellow, Urine Appearance Clear, Urine pH 6.5, Ur Specific [place] 1.020, Urine Protein Negative, Urine Glucose (UA) Negative, Urine Ketones Negative, Urine Blood Negative, Urine Nitrate Negative, Urine Bilirubin Negative, Urine Urobilinogen 1.0, Ur Leukocyte Esterase Negative, Urine RBC None, Urine WBC Occasional, Ur Squamous Epith Cells Occasional, Urine Bacteria Trace 06/01/19 11:12: POC Glucose 140 H <Dionte Nice - 06/01/19 13:53> Temp Pulse Resp BP Pulse Ox 97.7 F 123 H 22 120/64 100 06/01/19 07:39 06/01/19 07:39 06/01/19 07:39 06/01/19 07:39 06/01/19 07:39 Laboratory Results - last 24 hr 05/31/19 23:45: WBC 7.7, RBC 4.21 L, Hgb 10.5 L, Hct 36.3 L, MCV 86.2, MCH 24.9 L, MCHC 28.9 L, RDW 16.3, Plt Count 205, MPV 7.9, Neut % (Auto) 74.8, Lymph % (Auto) 14.9, [place] % (Auto) 6.3, Eos % (Auto) 3.4, Baso % (Auto) 0.6, Neut # (Auto) 5.8, Lymph # (Auto) 1.1, [place] # (Auto) 0.5, Eos # (Auto) 0.3, Baso # (Auto) 0.1 05/31/19 23:45: Sodium 135 L, Potassium 6.5 H*, Chloride 101, Carbon Dioxide 27, Anion Gap 13.5, BUN 35 H, Creatinine 1.88 H, Estimated Creat Clear 43, Estimated GFR 36 L, Est GFR ( Amer) 43 L, Glucose 148 H, Calcium 8.4 L, Total Bilirubin 0.4, AST 11 L, ALT 10 L, Alkaline Phosphatase 124 H, Troponin I < 0.02, Total Protein 7.6, Albumin 3.1 L, Globulin 4.5 H, Albumin/Globulin Ratio 0.7 L, Amylase 31, Lipase 88 06/01/19 00:30: Potassium 6.8 H* 06/01/19 02:45: Troponin I < 0.02 06/01/19 06:02: POC Glucose 139 H 06/01/19 06:03: Troponin I < 0.02 06/01/19 06:03: WBC 6.7, RBC 3.79 L, Hgb 9.6 L, Hct 33.0 L, MCV 87.1, MCH 25.3 L , MCHC 29.0 L, RDW 16.2, Plt Count 180, MPV 8.3, Neut % (Auto) 72.8, Lymph % (Auto) 17.8, [place] % (Auto) 6.3, Eos % (Auto) 2.5, Baso % (Auto) 0.6, Neut # (Auto) 4.9, Lymph # (Auto) 1.2, [place] # (Auto) 0.4, Eos # (Auto) 0.2, Baso # (Auto) 0.0 06/01/19 06:03: Sodium 137, Potassium 6.0 H, Chloride 104, Carbon Dioxide 26, Anion Gap 13.0, BUN 32 H, Creatinine 1.76 H, Estimated Creat Clear 46, Estimated GFR 39 L, Est GFR ( Amer) 47 L, Glucose 141 H, Calcium 8.0 L, Magnesium 1.9 06/01/19 06:45: Urine Color Yellow, Urine Appearance Clear, Urine pH 6.5, Ur Specific [place] 1.020, Urine Protein Negative, Urine Glucose (UA) Negative, Urine Ketones Negative, Urine Blood Negative, Urine Nitrate Negative, Urine Bilirubin Negative, Urine Urobilinogen 1.0, Ur Leukocyte Esterase Negative, Urine RBC None, Urine WBC Occasional, Ur Squamous Epith Cells Occasional, Urine Bacteria Trace <Sandrine Carrillo - 06/01/19 08:40> I & O for Last 24 hours: Intake & Output 05/30/19 05/31/19 06/01/19 06/02/19 11:59 11:59 11:59 11:59 Intake Total 2602 / 2602 360 / 360 Balance 2602 / 2602 360 / 360 Weight 435 lb <Dionte Nice - 06/01/19 13:53> Intake & Output 05/29/19 05/30/19 05/31/19 06/01/19 11:59 11:59 11:59 11:59 Intake Total 2602 / 2602 Balance 2602 / 2602 Weight 435 lb <Sandrine Carrillo - 06/01/19 08:40> - Constitutional no acute distress <Sandrine Carrillo - 06/01/19 08:40> - *Routine HEENT Exam Head: Present: normocephalic <Sandrine Carrillo 06/01/19 08:40> Eye: Present: EOMI, PERRL <Sandrine Carrillo 06/01/19 08:40> ENT: Present: mucous membranes moist <Sandrine Carrillo - 01/23/20 08:40> - *Routine Neck Exam Present: supple. Absent: lymphadenopathy <Sandrine Carrillo 06/01/19 08:40> - *Routine Respiratory Exam Present: CTA bilaterally <Sandrine Carrillo 06/01/19 08:40> - *Routine Cardiovascular Exam Present: irregularly irregular <Sandrine Carrillo 06/01/19 08:40> - *Routine Abdominal Exam Present: soft, normoactive bowel sounds, tenderness (bilateral lower quadrants) <Sandrine Carrillo 06/01/19 08:40> - *Routine Extremities Exam Present: edema (bilateral LE's). Absent: cyanosis, clubbing <Sandrine Carrillo 06/01/19 08:40> - *Routine Skin Exam Present: warm. Absent: rash <Sandrine Carrillo 06/01/19 08:40> - *Routine Neurological Exam Present: alert, oriented X3 <Sandrine Carrillo 06/01/19 08:40> Assessment and Plan (1) Acute hyperkalemia Current visit: Yes Status: Acute Category: Medical Code(s): E87.5 - Hyperkalemia (2) NIDA (acute kidney injury) Current visit: Yes Status: Acute Category: Medical Code(s): N17.9 - Acute kidney failure, unspecified (3) Constipation Current visit: Yes Status: Acute Category: Medical Code(s): K59.00 - Constipation, unspecified (4) Vomiting Current visit: Yes Status: Acute Category: Medical Code(s): R11.10 - Vomiting, unspecified (5) A-fib Current visit: Yes Status: Acute Qualifiers: Atrial fibrillation type: unspecified Qualified Code(s): I48.91 - Unspecified atrial fibrillation Category: Medical Code(s): I48.91 - Unspecified atrial fibrillation (6) Acute pain of right knee Current visit: No Status: Acute Category: Medical Code(s): M25.561 - Pain in right knee (7) Morbid obesity Current visit: Yes Status: Chronic Category: Medical Code(s): E66.01 - Morbid (severe) obesity due to excess calories (8) Hypertension Current visit: Yes Status: Chronic Category: Medical Code(s): I10 - Essential (primary) hypertension (9) Type 2 diabetes mellitus Current visit: Yes Status: Chronic Category: Medical Code(s): E11.9 - Type 2 diabetes mellitus without complications (10) Hyperlipemia Current visit: Yes Status: Chronic Category: Medical Code(s): E78.5 - Hyperlipidemia, unspecified (11) Chronic renal insufficiency Current visit: Yes Status: Acute Category: Medical Code(s): N18.9 - Chronic kidney disease, unspecified <Dionte Nice - 06/01/19 13:53> (1) Constipation Current visit: Yes Status: Acute Category: Medical Code(s): K59.00 - Constipation, unspecified (2) Vomiting Current visit: Yes Status: Acute Category: Medical Code(s): R11.10 - Vomiting, unspecified (3) A-fib Current visit: Yes Status: Acute Qualifiers: Atrial fibrillation type: unspecified Qualified Code(s): I48.91 - Unspecified atrial fibrillation Category: Medical Code(s): I48.91 - Unspecified atrial fibrillation (4) NIDA (acute kidney injury) Current visit: Yes Status: Acute Category: Medical Code(s): N17.9 - Acute kidney failure, unspecified (5) Acute hyperkalemia Current visit: Yes Status: Acute Category: Medical Code(s): E87.5 - Hyperkalemia (6) Acute pain of right knee Current visit: No Status: Acute Category: Medical Code(s): M25.561 - Pain in right knee (7) Morbid obesity Current visit: Yes Status: Chronic Category: Medical Code(s): E66.01 - Morbid (severe) obesity due to excess calories (8) Hypertension Current visit: Yes Status: Chronic Category: Medical Code(s): I10 - Essential (primary) hypertension (9) Type 2 diabetes mellitus Current visit: Yes Status: Chronic Category: Medical Code(s): E11.9 - Type 2 diabetes mellitus without complications (10) Hyperlipemia Current visit: Yes Status: Chronic Category: Medical Code(s): E78.5 - Hyperlipidemia, unspecified <Sandrine Carrillo - 06/01/19 08:30> - Assessment and plan all Dx Assessment and Plan for all problems:: Patient seen and examined. Concur with above. Etiology of his hyperkalemia likely related to his renal, recent vomiting, and taking diclofenac. Potassium is improved but still elevated at 6.0. We will repeat a dose of Kayexalate and recheck his potassium this afternoon. We will check echocardiogram related to his atrial fibrillation. <Dionte Nice - 06/01/19 13:53> Patient was given Kayexalate and his potassium is improving. He has since had 3 bowel movements and his stomach feels better. His vomiting has resolved. Will discuss further care with Dr. Nice. <Sandrine Carrillo - 06/01/19 08:40>
--- NOTE | 2019-06-01 15:37 | Cardiology Report ---
APPROVED REPORT EXAM: Limited 2D Echocardiogram Ecommerce Marketing Manager: Evelyn Maddox RVT Ht: 6 ft 2 in Wt: 435lbs BSA: 3.02 BP: 114/58 mmHg Indications: Atrial Fibrillation, Diabetes, Morbid Obesity, Hyperlipidemia, Hypertension,NIDA TDS-LIMITED WINDOWS,SCANNED UPRIGHT IN CHAIR 2D Dimensions LVOT 1.55 cm (M/F) 1.5-2.5 M-Mode Dimensions RVDd 3.14 cm (0.9-2.6)LVDd 5.39 cm (3.5-5.7) LVDs 3.95 cm (3.5-5.7)IVSd 1.19 cm (0.6-1.1) PWd 0.51 cm (0.6-1.1)EF (Teich) 51.70% FS 26.70% EDV (Teich) 140.70 mL ESV (Teich) 67.90 mL Left Ventricle Left atrium is moderately enlarged, left ventricle is normal size, mild concentric left ventricular hypertrophy, visually estimated ejection fraction 50% with no regional wall motion abnormality, endocardial surfaces are poorly visualized. Diastolic parameters are inconclusive. Right Ventricle Right atrium and right ventricular mildly enlarged with normal contractility. Aortic Valve Aortic valve is minimally thickened and fibrosed, there is no aortic stenosis or aortic insufficiency. Mitral Valve Mitral valve leaflets are minimally thickened, there is no mitral stenosis, there is mild mitral regurgitation. Tricuspid Valve Tricuspid valve is grossly normal, there is mild tricuspid regurgitation. Tricuspid regurgitation jet velocity is inadequate for calculation of the right ventricular systolic pressure. Pulmonic Valve Pulmonic valve is poorly visualized. Great Vessels Aortic root is normal size. Pericardium Small pericardial effusion noted. Conclusion 1. Technically difficult study because of the patient fact in poor acoustic windows, endocardial surfaces are poorly visualized. 2. Biatrial abdomen, normal left ventricular size, mild concentric left ventricular hypertrophy, visually estimated ejection fraction 50% with no regional wall motion abnormality, diastolic parameters are inconclusive. 3. Mild mitral and tricuspid regurgitation. 4. Small pericardial effusion noted. Electronically signed by : Silvino Rob, 06/01/2019 15:36:55
--- NOTE | 2019-06-01 18:58 | Electrocardiograph Report ---
APPROVED REPORT Exam: Resting ECG HR:102 bpm ECG Measurements Heart Rate 102 AXES QRSd 86 QRS 11 QT 330 T57 QTc 430 <Conclusion> Atrial fibrillation with rapid ventricular response Low voltage QRS Poor R Wave Progression Abnormal ECG Electronically signed by : Hayden Yung, 06/01/2019 18:58:19
[2019-06-02 07:57] LABS: Anion Gap 10.2 mEq/L (5-15); Calcium 8.2 mg/dL (8.5-10.1)
--- NOTE | 2019-06-02 08:03 | Progress Note ---
<Sandrine Carrillo - Last Filed: 06/02/19 07:59> Internal Medicine - PN: Subj *Date: 06/02/19 *Time: 07:59 Interval history: Patient is feeling better today. He states his abdominal pain has improved. He has had no further vomiting and has had multiple bowel movements. He has had a lot of gas. He slept well last night and ate all of his breakfast this morning. Exam Vital signs and Labs for Last 24 Hours: Temp Pulse Resp BP Pulse Ox 98.0 F 52 L 18 117/63 93 L 06/02/19 07:46 06/02/19 07:46 06/02/19 07:46 06/02/19 07:46 06/02/19 07:46 Laboratory Results - last 24 hr 06/01/19 11:12: POC Glucose 140 H 06/01/19 16:02: Potassium 6.1 H* 06/01/19 16:07: POC Glucose 181 H 06/01/19 21:39: POC Glucose 274 H 06/02/19 06:30: POC Glucose 147 H I & O for Last 24 hours: Intake & Output 05/30/19 05/31/19 06/01/19 06/02/19 11:59 11:59 11:59 11:59 Intake Total 2602 / 2602 360 / 360 Balance 2602 / 2602 360 / 360 Weight 435 lb Radiology Reports for the Last 24 Hours: ECHO 1. Technically difficult study because of the patient fact in poor acoustic windows, endocardial surfaces are poorly visualized. 2. Biatrial abdomen, normal left ventricular size, mild concentric left ventricular hypertrophy, visually estimated ejection fraction 50% with no regional wall motion abnormality, diastolic parameters are inconclusive. 3. Mild mitral and tricuspid regurgitation. 4. Small pericardial effusion noted. - Constitutional no acute distress - *Routine Respiratory Exam Present: CTA bilaterally - *Routine Cardiovascular Exam Present: RRR - *Routine Abdominal Exam Present: soft, normoactive bowel sounds. Absent: tenderness - *Routine Extremities Exam Present: edema (bilateral LE's) - *Routine Skin Exam Present: warm. Absent: rash - *Routine Neurological Exam Present: alert, oriented X3 Assessment and Plan (1) Acute hyperkalemia Current visit: Yes Status: Acute Category: Medical Code(s): E87.5 - Hyperkalemia (2) NIDA (acute kidney injury) Current visit: Yes Status: Acute Category: Medical Code(s): N17.9 - Acute kidney failure, unspecified (3) Constipation Current visit: Yes Status: Acute Category: Medical Code(s): K59.00 - Constipation, unspecified (4) Vomiting Current visit: Yes Status: Acute Category: Medical Code(s): R11.10 - Vomiting, unspecified (5) A-fib Current visit: Yes Status: Acute Qualifiers: Atrial fibrillation type: unspecified Qualified Code(s): I48.91 - Unspecified atrial fibrillation Category: Medical Code(s): I48.91 - Unspecified atrial fibrillation (6) Acute pain of right knee Current visit: No Status: Acute Category: Medical Code(s): M25.561 - Pain in right knee (7) Morbid obesity Current visit: Yes Status: Chronic Category: Medical Code(s): E66.01 - Morbid (severe) obesity due to excess calories (8) Hypertension Current visit: Yes Status: Chronic Category: Medical Code(s): I10 - Essential (primary) hypertension (9) Type 2 diabetes mellitus Current visit: Yes Status: Chronic Category: Medical Code(s): E11.9 - Type 2 diabetes mellitus without complications (10) Hyperlipemia Current visit: Yes Status: Chronic Category: Medical Code(s): E78.5 - Hyperlipidemia, unspecified (11) Chronic renal insufficiency Current visit: Yes Status: Acute Category: Medical Code(s): N18.9 - Chronic kidney disease, unspecified - Assessment and plan all Dx Assessment and Plan for all problems:: Potassium is still elevated today. His legs are more swollen this morning. He will likely need some Lasix. Will discuss with Dr. Nice. <Dionte Nice - Last Filed: 06/02/19 17:22> Internal Medicine - PN: Subj *Date: 06/02/19 *Time: 17:21 Exam Vital signs and Labs for Last 24 Hours: Temp Pulse Resp BP Pulse Ox 98.1 F 120 H 18 114/84 94 L 06/02/19 16:00 06/02/19 16:00 06/02/19 16:00 06/02/19 16:00 06/02/19 16:00 Laboratory Results - last 24 hr 06/01/19 16:07: POC Glucose 181 H 06/01/19 21:39: POC Glucose 274 H 06/02/19 06:30: POC Glucose 147 H 06/02/19 07:09: Sodium 138, Potassium 6.2 H*, Chloride 105, Carbon Dioxide 29, Anion Gap 10.2, BUN 33 H, Creatinine 1.52 H, Estimated Creat Clear 53, Estimated GFR 46 L, Est GFR ( Amer) 55 L, Glucose 151 H, Calcium 8.2 L 06/02/19 11:06: POC Glucose 192 H 06/02/19 15:54: POC Glucose 217 H I & O for Last 24 hours: Intake & Output 05/31/19 06/01/19 06/02/19 06/03/19 11:59 11:59 11:59 11:59 Intake Total 2602 / 2602 360 / 360 360 / 360 Balance 2602 / 2602 360 / 360 360 / 360 Weight 435 lb 434 lb 4.97 oz Assessment and Plan (1) Acute hyperkalemia Current visit: Yes Status: Acute Category: Medical Code(s): E87.5 - Hyperkalemia (2) NIDA (acute kidney injury) Current visit: Yes Status: Acute Category: Medical Code(s): N17.9 - Acute kidney failure, unspecified (3) Constipation Current visit: Yes Status: Acute Category: Medical Code(s): K59.00 - Constipation, unspecified (4) Vomiting Current visit: Yes Status: Acute Category: Medical Code(s): R11.10 - Vomiting, unspecified (5) A-fib Current visit: Yes Status: Acute Qualifiers: Atrial fibrillation type: unspecified Qualified Code(s): I48.91 - Unspecified atrial fibrillation Category: Medical Code(s): I48.91 - Unspecified atrial fibrillation (6) Acute pain of right knee Current visit: No Status: Acute Category: Medical Code(s): M25.561 - Pain in right knee (7) Morbid obesity Current visit: Yes Status: Chronic Category: Medical Code(s): E66.01 - Morbid (severe) obesity due to excess calories (8) Hypertension Current visit: Yes Status: Chronic Category: Medical Code(s): I10 - Essential (primary) hypertension (9) Type 2 diabetes mellitus Current visit: Yes Status: Chronic Category: Medical Code(s): E11.9 - Type 2 diabetes mellitus without complications (10) Hyperlipemia Current visit: Yes Status: Chronic Category: Medical Code(s): E78.5 - Hyperlipidemia, unspecified (11) Chronic renal insufficiency Current visit: Yes Status: Acute Category: Medical Code(s): N18.9 - Chronic kidney disease, unspecified - Assessment and plan all Dx Assessment and Plan for all problems:: Patient seen and examined this morning. He states he is feeling much better and in fact is requesting to go home today however his potassium remains elevated at 6.2 this morning. His renal function has improved. He is noted with increased swelling in his feet and legs. No further vomiting and appetite is back to normal. We will add Lasix to his regimen and continue the Kayexalate. Anticipate potassium to begin improving as his renal function improves.
[2019-06-03 08:26] LABS: Anion Gap 9.7 mEq/L (5-15); Calcium 7.9 mg/dL (8.5-10.1)
--- NOTE | 2019-06-03 09:50 | Progress Note ---
Internal Medicine - PN: Subj *Date: 06/03/19 *Time: 09:47 Interval history: Buster rested better last night. He slept in the recliner which he usually does at home. No further vomiting. Appetite is normal. Still has some swelling in his legs. Exam Vital signs and Labs for Last 24 Hours: Temp Pulse Resp BP Pulse Ox 97.6 F 106 H 18 99/48 L 96 06/03/19 08:00 06/03/19 08:00 06/03/19 08:00 06/03/19 08:00 06/03/19 08:00 Laboratory Results - last 24 hr 06/02/19 11:06: POC Glucose 192 H 06/02/19 15:54: POC Glucose 217 H 06/02/19 20:01: POC Glucose 200 H 06/03/19 06:16: POC Glucose 178 H 06/03/19 08:00: Sodium 140, Potassium 4.7 D, Chloride 104, Carbon Dioxide 31, Anion Gap 9.7, BUN 29 H, Creatinine 1.32 H, Estimated Creat Clear 61, Estimated GFR 54 L, Est GFR ( Amer) 65, Glucose 186 H, Calcium 7.9 L I & O for Last 24 hours: Intake & Output 05/31/19 06/01/19 06/02/19 06/03/19 11:59 11:59 11:59 11:59 Intake Total 2602 / 2602 360 / 360 750 / 750 Output Total 300 / 300 Balance 2602 / 2602 360 / 360 450 / 450 Weight 435 lb 446 lb 9 oz Narrative: Sitting up in chair, alert and in no distress. Lungs are clear to auscultation. Heart tones are distant. Lower extremities show 1+ pretibial edema. No calf tenderness or cords. Assessment and Plan (1) Acute hyperkalemia Current visit: Yes Status: Acute Category: Medical Code(s): E87.5 - Hyperkalemia (2) NIDA (acute kidney injury) Current visit: Yes Status: Acute Category: Medical Code(s): N17.9 - Acute kidney failure, unspecified (3) Constipation Current visit: Yes Status: Acute Category: Medical Code(s): K59.00 - Constipation, unspecified (4) Vomiting Current visit: Yes Status: Acute Category: Medical Code(s): R11.10 - Vomiting, unspecified (5) A-fib Current visit: Yes Status: Acute Qualifiers: Atrial fibrillation type: unspecified Qualified Code(s): I48.91 - Unspecified atrial fibrillation Category: Medical Code(s): I48.91 - Unspecified atrial fibrillation (6) Acute pain of right knee Current visit: No Status: Acute Category: Medical Code(s): M25.561 - Pain in right knee (7) Morbid obesity Current visit: Yes Status: Chronic Category: Medical Code(s): E66.01 - Morbid (severe) obesity due to excess calories (8) Hypertension Current visit: Yes Status: Chronic Category: Medical Code(s): I10 - Essential (primary) hypertension (9) Type 2 diabetes mellitus Current visit: Yes Status: Chronic Category: Medical Code(s): E11.9 - Type 2 diabetes mellitus without complications (10) Hyperlipemia Current visit: Yes Status: Chronic Category: Medical Code(s): E78.5 - Hyperlipidemia, unspecified (11) Chronic renal insufficiency Current visit: Yes Status: Acute Category: Medical Code(s): N18.9 - Chronic kidney disease, unspecified - Assessment and plan all Dx Assessment and Plan for all problems:: His potassium is now normal. He is stable for discharge. He will be continued on Lasix at home. Diclofenac is been discontinued. We will arrange for home health [facility], [facility]. Will get follow-up labs next week.
--- NOTE | 2019-06-05 14:26 | Discharge Summary ---
General - General Admission date:: 06/01/19 <Dionte Nice - 06/11/19 08:32> 06/01/19 <Sandrine Carrillo - 06/05/19 14:27> Discharge date: 06/03/19 <Sandrine Carrillo - 06/05/19 14:27> HPI HPI: Mr. Grande is a 69-year-old male who stated he had had numerous falls in the last few weeks which had caused knee pain. He had been taking a diclofenac prescription at home along with numerous other [id number] "pain medications." When asked what medications he was taking, he said he did not know, they were just cheap [employer] pain pills. He did call into the office due to pain and states he was given a prescription for pain medication. He thought the combination of all of this medication caused constipation and he went 5 days without a bowel movement. He called the office and was told to take MiraLAX and Dulcolax. He started them but still had no bowel movement and then began vomiting. He therefore presented to the emergency room. His potassium was found to be elevated. He was admitted for observation and given Kayexalate and antiemetics. <Sandrine Carrillo - 06/05/19 14:27> Hospital Course Hospital Course: The patient's vomiting stopped and he had 3 bowel movements. His abdominal pain did improve. He was continued on Kayexalate for elevated potassium levels. An echo was ordered due to his atrial fib. It showed an EF of 50% with a small pericardial effusion. The patient began resting well and eating well. He had some increased swelling in his feet and legs, therefore Lasix was added to his regimen and he was continued on Kayexalate due to continued elevated potassium levels. His renal function did improve. His potassium normalized and he was stable to be discharged home on continued Lasix. His diclofenac will be discontinued and home health will be arranged for [facility] physical therapy and Occupational Therapy. <Sandrine Carrillo - 06/05/19 14:27> Objective Vital signs: Temp Pulse Resp BP Pulse Ox 97.6 F 106 H 18 99/48 L 96 06/03/19 08:00 06/03/19 08:00 06/03/19 08:00 06/03/19 08:00 06/03/19 08:00 <Dionte Nice - 06/11/19 08:32> Temp Pulse Resp BP Pulse Ox 97.6 F 106 H 18 99/48 L 96 06/03/19 08:00 06/03/19 08:00 06/03/19 08:00 06/03/19 08:00 06/03/19 08:00 <Sandrine Carrillo 06/05/19 14:27> Narrative: Sitting up in chair, alert and in no distress. Lungs are clear to auscultation. Heart tones are distant. Lower extremities show 1+ pretibial edema. No calf tenderness or cords. <Sandrine Carrillo 06/05/19 14:27> DS: Diagnosis - Discharge Diagnosis (1) Acute hyperkalemia Status: Acute (2) NIDA (acute kidney injury) Status: Acute (3) Constipation Status: Acute (4) Vomiting Status: Acute (5) A-fib Status: Acute (6) Acute pain of right knee Status: Acute (7) Morbid obesity Status: Chronic (8) Hypertension Status: Chronic (9) Type 2 diabetes mellitus Status: Chronic (10) Hyperlipemia Status: Chronic (11) Chronic renal insufficiency Status: Acute <Sandrine Carrillo 06/05/19 14:20> (1) Acute hyperkalemia Status: Acute (2) NIDA (acute kidney injury) Status: Acute (3) Constipation Status: Acute (4) Vomiting Status: Acute (5) A-fib Status: Acute (6) Acute pain of right knee Status: Acute (7) Morbid obesity Status: Chronic (8) Hypertension Status: Chronic (9) Type 2 diabetes mellitus Status: Chronic (10) Hyperlipemia Status: Chronic (11) Chronic renal insufficiency Status: Acute <Dionte Nice - 06/11/19 08:32> Discharge Plan - Patient Discharge Instructions ACTIVITY: Continue current activity <Sandrine Carrillo 06/05/19 14:27> DIET: continue same diet <Sandrine Carrillo 06/05/19 14:27> Patient Instructions: Atrial Fibrillation, DI for Obesity -- Adult, DI for Hyperkalemia, How to Prevent Falls, Hyperkalemia, DI for Acute Kidney Injury <Dionte Nice - 06/11/19 08:32> Forms: <Dionte Nice 06/11/19 08:32> - Follow up Plan Follow up with: Dionte Nice MD [Staff Physician] - <Dionte Nice - 06/11/19 08:32> Disposition: Home Health Service <TexDionte way Willian - 06/11/19 08:32> Home Medications: Home Medications Medication Instructions Recorded Confirmed Type Insulin Aspart Prot/Insuln Asp 25 unit SQ BID 05/28/19 06/01/19 History [Insulin Aspart Prot-Insuln Asp] Metformin HCl [Metformin 1000mg 500 mg PO TID 05/28/19 06/01/19 History Tablets] Simvastatin 40 mg PO HS 05/28/19 06/01/19 History lisinopriL [Lisinopril 20mg Tab] 20 mg PO DAILY 05/28/19 06/01/19 History Hydrocod/Acet 5/325 mg [[place] 1 tab PO TID PRN #24 tab 05/29/19 06/01/19 Rx 5/325mg tablet] Timolol Maleate [Timoptic 0.5% 0 ml OP DAILY 06/02/19 06/02/19 History opth soln 5mL] Furosemide [Lasix 40mg tab] 40 mg PO DAILY #30 tab 06/03/19 Rx Pen Needle, Diabetic [Pen [place]] 1 each MC BID #100 dis.needle 06/03/19 Rx <Dionte Nice - 06/11/19 08:32> Prescriptions/Medication Reconciliation: New Furosemide [Lasix 40mg tab] 40 mg PO DAILY #30 tab Pen Needle, Diabetic [Pen [place]] 1 each MC BID #100 dis.needle Continued Simvastatin 40 mg PO HS Insulin Aspart Prot/Insuln Asp [Insulin Aspart Prot-Insuln Asp] 25 unit SQ BID Hydrocod/Acet 5/325 mg [[place] 5/325mg tablet] 1 tab PO TID PRN #24 tab PRN Reason: Moderate To Severe Pain Timolol Maleate [Timoptic 0.5% opth soln 5mL] 0 ml OP DAILY Metformin HCl [Metformin 1000mg Tablets] 500 mg PO TID lisinopriL [Lisinopril 20mg Tab] 20 mg PO DAILY Discontinued Diclofenac Sodium [Diclofenac 75mg Tab] 75 mg PO BID <Dionte Nice - 06/11/19 08:32> - Problem Reconciliation Problems Reviewed?: Yes <Dionte Nice - 06/11/19 08:32> Yes <Sandrine Carrillo - 06/05/19 14:27> - Additional Information Additional Information: Patient seen and examined. Concur with plan for discharge as outlined above. <Dionte Nice - 06/11/19 08:32>
== END 2019-06-03 10:55 | disposition home health service (06) ==
LOC: ER 23:32 → 2ND 23:32
PROVIDERS: ADMIT Family Medicine; ATTEND Family Medicine
DX: Z68.43 Body mass index [BMI] 50.0-59.9, adult; I48.91 Unspecified atrial fibrillation; E66.01 Morbid (severe) obesity due to excess calories; I10 Essential (primary) hypertension; E11.9 Type 2 diabetes mellitus without complications; E87.5 Hyperkalemia; K59.00 Constipation, unspecified; Z79.4 Long term (current) use of insulin
CPT/HCPCS: 36415; 80048; 80053; 81001; 82150; 82962; 83690; 83735; 84132; 84484; 85025; 93005; 93308; 96365; 96366; 96375; 99284; G0378; J2405

== ENCOUNTER → 2019-06-12 14:47 | Outpatient (CLI) | payer MEDICARE, SELFPAY ==
[2019-06-12 17:27] LABS: Anion Gap 15.4 mEq/L (5-15); Blood Urea Nitrogen 49 mg/dL (7-18); Calcium 8.6 mg/dL (8.5-10.1); Carbon Dioxide 29 mmol/L (21.0-32.0); Chloride 104 mmol/L (98-107); Creatinine,Serum 1.71 mg/dL (0.70-1.30); Estimated Glomerular Filt Rate 40 ml/min (>60); GFR (African American) 48 ML/MIN (>60); Glucose 144 mg/dL (74-106); Potassium 5.4 mmoL/L (3.5-5.1); Sodium 143 mmol/L (136-145)
== END ==
PROVIDERS: Visit Provider Family Medicine
DX: E87.6 Hypokalemia (principal); E11.22 Type 2 diabetes mellitus with diabetic chronic kidney disease; I12.9 Hypertensive chronic kidney disease with stage 1 through stage 4 chronic kidney disease, or unspecified chronic kidney disease; Z79.84 Long term (current) use of oral hypoglycemic drugs
CPT/HCPCS: 80048

== ENCOUNTER 2019-10-19 21:09 | Emergency (ER) | payer MEDICARE, SELFPAY ==
[2019-10-19 21:09] VITALS: BP 143/108; PULSE 116; RESP 16; TEMP 36.6; O2SAT 100; BMI 63.7
--- NOTE | 2019-10-19 21:10 | PC.NURSE ---
Dr. Livingston at bedside on pt arrival with this nurse. performed full NIH scale and gave pt a 1 for dysarthria present.
--- NOTE | 2019-10-19 21:42 | PC.NURSE ---
Lab at bedside for Lab draw, we were unable to obtain IV
--- NOTE | 2019-10-19 21:42 | PC.NURSE ---
lab at bedside for blood work
[2019-10-19 21:54] LABS: Basophils # 0.1 K/mm3 (0-0.2); Basophils % 0.7 % (0.1-2.0); Eosinophils # 0.4 K/mm3 (0.0-0.4); Eosinophils % 4.6 % (0.1-12.0); Hematocrit 35.7 % (42.0-52.0); Hemoglobin 10.9 g/dL (14.1-18.0); Lymphocytes # 1.3 K/mm3 (0.7-4.5); Lymphocytes % 14.5 % (10-50); Mean Corpuscular HGB Conc 30.4 g/dL (31.8-35.4); Mean Corpuscular Hemoglobin 26.7 pg (27.0-31.2); Mean Corpuscular Volume 87.8 fl (80-94); Mean Platelet Volume 7.7 fl (7.4-10.4); Monocytes # 0.6 K/mm3 (0.1-1.0); Monocytes % 6.9 % (1.7-9.3); Neutrophils # 6.7 K/mm3 (1.8-7.8); Neutrophils % 73.2 % (37.0-80.0); Platelet Count 202 K/mm3 (142-424); Red Blood Count 4.07 M/mm3 (4.60-6.20); Red Cell Distribution Width 17.2 % (11.5-17.5); White Blood Count 9.1 K/mm3 (4.8-10.8)
[2019-10-19 22:12] LABS: Chloride 110 mmol/L (98-107); Potassium 5.5 mmoL/L (3.5-5.1); Sodium 142 mmol/L (136-145)
[2019-10-19 22:15] LABS: Alanine Aminotransferase 13 U/L (12-78); Albumin Level 3.9 g/dl (3.5-5.0); Alkaline Phosphatase 196 U/L (38-126); Anion Gap 9.5 mEq/L (5-15); Aspartate Amino Transferase 18 U/L (17-59); Bilirubin,Total 0.5 mg/dl (0.2-1.3); Blood Urea Nitrogen 22 mg/dl (9-20); Calcium 9.2 mg/dl (8.4-10.2); Carbon Dioxide 28 mmol/L (22.0-30.0); Creatinine Clearance Estimated 70 mL/min (50-200); Estimated Glomerular Filt Rate 66 ml/min (>60); GFR (African American) 80 ML/MIN (>60); Globulin 4.1 g/dL (1.3-3.2); Glucose 96 mg/dl (74-100)
--- NOTE | 2019-10-19 22:31 | HMH.EDGENADL ---
ED Disposition Clinical Impression: Transient cerebral ischemia Disposition: Home, Self-Care Condition on Discharge: Good Referrals: Sage Gandara MD [Primary Care Provider] - - Critical Care Critical Care Time: No Attestation: On 10/19/19, the high probability of a clinically significant, sudden or life threatening deterioration of the following system(s) required my full and direct attention, intervention and personal management. The time I documented below is in addition to time spent performing reported procedures but includes the following listed in this critical care notation. Medical Decision Making - Medical Records Medical records reviewed: Yes: I reviewed the patient's medical records. - Zack Inquiry Pt receiving controlled substance: No Vital Signs: 10/19/19 21:09 Temperature 97.9 F Temperature Source Oral Pulse Rate [Left Radial] 116 H Respiratory Rate 16 Blood Pressure [Right Arm] 143/108 H Blood Pressure Mean [Right Arm] 119 Blood Pressure Source [Right Arm] Automatic Cuff Blood Pressure Position [Right Arm] Sitting 02 Sat by Pulse Oximetry 100 Oxygen Delivery Method Room Air - Lab Data Lab results reviewed: Yes: I reviewed the patient's lab results. Lab Results 10/19/19 21:46: WBC 9.1, RBC 4.07 L, Hgb 10.9 L, Hct 35.7 L, MCV 87.8, MCH 26.7 L, MCHC 30.4 L, RDW 17.2, Plt Count 202, MPV 7.7, Neut % (Auto) 73.2, Lymph % (Auto) 14.5, [place] % (Auto) 6.9, Eos % (Auto) 4.6, Baso % (Auto) 0.7, Neut # (Auto) 6.7, Lymph # (Auto) 1.3, [place] # (Auto) 0.6, Eos # (Auto) 0.4, Baso # (Auto) 0.1 Result diagrams: 10/19/19 21:46 Orders (Tests/Meds): ORDERS Category Date Time Status Comprehensive Metabolic Panel Stat Lab 10/19/19 21:46 Received Medical Decision Narrative: Did an extensive neurological examination with this patient all of his symptoms were normal. All of his exam was perfectly normal. He did have some dysarthria but that is his baseline. Given an NIH score of 1 General Adult HPI - General Chief complaint: Neuro Symptoms/Deficit Stated complaint: tingling in left hand Time Seen by Provider: 10/19/19 22:31 Mode of Arrival: EMS Source of Information: Patient Limitations: Physical Limitations Description of Symptoms (Recalled from ER Triage Doc. by RN): pt stated he began to have slurred speach last night that continued to this morning. pt called EMS this afternoon. EMS told him his sugar was high and pt refused EMS transport and stated he would just take his insulin. tonight pt started to complain of tingling in the left hand while trying to play video games. - History of Present Illness HPI narrative: 69-year-old male presents the ED with a chief complaint of some left-handed weakness and tingling. He states the symptoms started roughly about 24 hours prior to arrival here in the emergency department. Here in the ED he has no neurological deficits. His vital signs are stable and patient has no other complaints. He stated this started when he was trying play some video games last night and he felt like he could not control her down all the way with his left hand. She denies any recent fever shakes or chills. Patient denies any nausea vomiting diarrhea. Patient denies any other symptoms. - Related Data Home Medications Medication Instructions Recorded Confirmed Insulin Aspart Prot/Insuln Asp 25 unit SQ BID 05/28/19 06/24/19 [Insulin Aspart Prot-Insuln Asp] Metformin HCl [Metformin 1000mg 500 mg PO TID 05/28/19 06/24/19 Tablets] Simvastatin 40 mg PO HS 05/28/19 06/24/19 lisinopriL [Lisinopril 20mg Tab] 20 mg PO DAILY 05/28/19 06/24/19 timoloL maleate [Timoptic 0.5% 0 ml OP DAILY 06/02/19 06/24/19 opth soln 5mL] Furosemide [Lasix 40mg tab] 40 mg PO DAILY 06/24/19 06/24/19 Pen Needle, Diabetic [Pen [place]] 1 each MC BID 06/24/19 06/24/19 Tramadol HCl [Tramadol 50mg 350 mg PO TID PRN 06/24/19 06/24/19 Tab] Previous Rx's Medi
[2019-10-19 22:57] VITALS: BP 148/94; PULSE 98; RESP 18; TEMP 36.6; O2SAT 98
== END 2019-10-19 22:59 | disposition home or self-care (01) ==
PROVIDERS: Emergency Provider Family Medicine; PCP Internal Medicine Adolescent Medicine
DX: G45.8 Other transient cerebral ischemic attacks and related syndromes (principal); E11.9 Type 2 diabetes mellitus without complications; Z79.84 Long term (current) use of oral hypoglycemic drugs; Z79.4 Long term (current) use of insulin; I10 Essential (primary) hypertension; E78.5 Hyperlipidemia, unspecified
CPT/HCPCS: 36415; 80053; 85025; 99282

== ENCOUNTER → 2019-10-30 12:51 | Outpatient (CLI) | payer MEDICARE, SELFPAY ==
--- NOTE | 2019-10-30 | CA_ITS ---
APPROVED REPORT EXAM: Comprehensive 2D, Doppler, and color-flow Echocardiogram Manager Of Health: Khushi Breaux RDCS Ht: 6 ft 2 in Wt: 435lbs BSA: 3.02 BP: 143/108 mmHg Indications: cva, af,dm 2D Dimensions LVOT 2.01 cm (M/F) 1.5-2.5 M-Mode Dimensions RVDd 4.00 cm (0.9-2.6) LVDd 6.17 cm (3.5-5.7) LVDs 5.79 cm (3.5-5.7) IVSd 0.89 cm (0.6-1.1) PWd 0.85 cm (0.6-1.1) EF (Teich) 13.50% FS 6.20% EDV (Teich) 191.90 mL ESV (Teich) 165.90 mL Left Ventricle Technically very difficult study, endocardial surfaces and valvular structures are poorly visualized, repeat study with Definity contrast is recommended. Left atrium is moderately enlarged, left ventricle is normal size, visually estimated ejection fraction 55%, endocardial surfaces are very poorly visualized. Diastolic parameters are inconclusive. Right Ventricle Right atrium is moderately enlarged, right ventricle moderately dilated with moderate reduction right ventricular contractility. Aortic Valve Aortic valve is thickened and calcified leaflet chordae display mobility, there is no obvious aortic stenosis, there is moderate aortic insufficiency. Mitral Valve Mitral valve leaflets are minimally thickened, there is no mitral stenosis, there is moderate mitral regurgitation. Tricuspid Valve Tricuspid valve is minimally thickened, there is mild tricuspid regurgitation. Pulmonic Valve Pulmonic valve is poorly visualized. Great Vessels Aortic root is normal size. Pericardium No significant pericardial effusion noted. Conclusion 1. Biatrial enlargement, normal left ventricular size, mild concentric left ventricular hypertrophy, visually estimated ejection fraction of 55%, endocardial surfaces are very poorly visualized, a repeat study with Definity contrast is recommended. 2. Moderately enlarged right ventricle with moderate reduction right ventricular systolic function 3. Thickened and calcified aortic valve there is no obvious aortic stenosis, there is moderate aortic insufficiency. 4. Moderate mitral and mild tricuspid regurgitation. 5. No significant pericardial effusion noted. 6. Technically very difficult study as described above. Electronically signed by : Silvino Rob, 10/30/2019 19:29:32
== END ==
PROVIDERS: PCP Family Medicine; Visit Provider Family Medicine
DX: I63.89 Other cerebral infarction (principal)
CPT/HCPCS: 93306

== ENCOUNTER → 2022-11-23 11:06 | Outpatient (CLI) | payer MEDICARE, SELFPAY ==
--- NOTE | 2022-11-23 11:21 | ECG_ITS ---
APPROVED REPORT Exam: Resting ECG HR:95 bpm ECG Measurements Heart Rate 95 AXES QRSd 89 QRS 13 QT 337 T 58 QTc 390 Conclusion ATRIAL FIBRILLATION WITH ABERRANT CONDUCTION OR VENTRICULAR PREMATURE COMPLEXES LOW QRS VOLTAGE IN PRECORDIAL LEADS [QRS DEFLECTION < 1.0 mV IN CHEST LEADS] POSSIBLE ANTERIOR MYOCARDIAL INFARCTION , PROBABLY OLD [30 ms Q WAVE IN V3/V4, OR R < 0.2 mV IN V4] ABNORMAL RHYTHM ECG UNCONFIRMED REPORT Electronically signed by : Sage Gandara MD 11/25/2022 21:27:14
[2022-11-23 12:17] LABS: Potassium 5.7 mmoL/L (3.5-5.1)
== END ==
PROVIDERS: PCP Physician Assistant; Visit Provider Physician Assistant
DX: I49.9 Cardiac arrhythmia, unspecified (principal); E87.5 Hyperkalemia
CPT/HCPCS: 36415; 84132; 93005

== ENCOUNTER → 2022-12-01 09:18 | Outpatient (CLI) | payer MEDICARE, SELFPAY ==
[2022-12-01 09:54] LABS: Basophils % 0.4 % (0.1-2.0); Eosinophils # 0.2 K/mm3 (0.0-0.4); Eosinophils % 2.7 % (0.1-12.0); Hematocrit 29.4 % (42.0-52.0); Hemoglobin 8.9 g/dL (14.1-18.0); Lymphocytes # 0.9 K/mm3 (0.7-4.5); Mean Corpuscular HGB Conc 30.3 g/dL (31.8-35.4); Mean Corpuscular Hemoglobin 22.1 pg (27.0-31.2); Mean Platelet Volume 7.9 fl (7.4-10.4); Monocytes # 0.4 K/mm3 (0.1-1.0); Monocytes % 4.9 % (1.7-9.3); Neutrophils % 81.9 % (37.0-80.0); Platelet Count 305 K/mm3 (142-424); Red Blood Count 4.02 M/mm3 (4.60-6.20); Red Cell Distribution Width 18.8 % (11.5-17.5); White Blood Count 8.6 K/mm3 (4.8-10.8)
[2022-12-01 10:28] LABS: Chloride 105 mmol/L (98-107)
[2022-12-01 10:29] LABS: Potassium 5.6 mmoL/L (3.5-5.1); Sodium 140 mmol/L (136-145)
[2022-12-01 10:31] LABS: Alanine Aminotransferase 12 U/L (12-78); Aspartate Amino Transferase 17 U/L (17-59); Blood Urea Nitrogen 25 mg/dl (9-20); Estimated Glomerular Filt Rate 60 ml/min (>60); GFR (African American) 72 ML/MIN (>60)
[2022-12-01 10:32] LABS: Albumin Level 3.5 g/dl (3.5-5.0); Alkaline Phosphatase 188 U/L (38-126); Anion Gap 14.6 mEq/L (5-15); Bilirubin,Direct 0.3 mg/dl (0.0-0.4); Bilirubin,Total 0.3 mg/dl (0.2-1.3); Carbon Dioxide 26 mmol/L (22.0-30.0); Cholesterol 126 mg/dl (140-200); Glucose 143 mg/dl (74-100); HDL Cholesterol 42 mg/dl (40-60); Magnesium 1.5 mg/dl (1.6-2.3); Total Protein,Serum 6.9 g/dl (6.3-8.2); Triglycerides 153 mg/dl (30-150); VLDL Cholesterol 31 mg/dL (0-40)
[2022-12-01 10:40] LABS: NT Pro Brain Natriuretic Pep. 3060 pg/mL (0-125)
[2022-12-01 10:43] LABS: Direct LDL Cholesterol 54.95 mg/dL (100-129)
[2022-12-01 11:02] LABS: Thyroid Stimulating Hormone 1.49 uIU/mL (0.465-4.68)
[2022-12-01 11:38] LABS: Free T4 (Free Thyroxine) 1.34 ng/dl (0.78-2.19)
== END ==
PROVIDERS: PCP Family Medicine; Visit Provider Internal Medicine
DX: E11.9 Type 2 diabetes mellitus without complications (principal); E66.01 Morbid (severe) obesity due to excess calories; E78.5 Hyperlipidemia, unspecified; I10 Essential (primary) hypertension; I48.91 Unspecified atrial fibrillation; K92.1 Melena; R06.00 Dyspnea, unspecified; R94.31 Abnormal electrocardiogram [ECG] [EKG]; Z79.4 Long term (current) use of insulin; G45.8 Other transient cerebral ischemic attacks and related syndromes
CPT/HCPCS: 36415; 80048; 80061; 80076; 83735; 83880; 84439; 84443; 85025; 93225

== ENCOUNTER → 2022-12-09 07:15 | Outpatient (CLI) | payer MEDICARE, SELFPAY ==
--- NOTE | 2022-12-09 | CA_ITS ---
APPROVED REPORT Exam: Pharmacologic Technologist: Rita Pinto, Ht: 6 ft 2 in Wt: 367 lbs BSA: 2.81 m2 HR: 96 bpm BP: 125/55 mmHg Rhythm: AFIB, CONTROLLED V RATE, LOW VOLTAGE QRS Medical History Medical History: HTN, Hyperlipidemia, Diabetes Medications: Lisinopril,,,,, Simvastatin,,,,, Tramadol,,,,, ProMETHAZINE,,,,, Hydrocodone-Acetaminohen,,,,, Metoprolol Succinate ER,,,,, Furosemide,,,,, Metformin ER,,,,, INSULIN ASPART,,,,, Allergies: No known drug allergies Cardiac Risk Factors: HTN, Hyperlipidemia, Diabetes Stress Test Details Test: LEXISCAN HR Resting HR: 92 bpm Max Heart Rate (APMHR): 148 bpm Max HR Achieved: 115 bpm Target HR (85% APMHR): 126 bpm % of APMHR: 78 Recovery HR: 93 bpm BP Resting BP: 125/55 mmHg Max BP: 125/55 mmHg Recovery BP: 120.0/54.0 mmHg ECG Resting ECG: A FIB, CONTROLLED V RATE, LOW VOLTAGE QRS Stress ECG: NO CHANGE Arrhythmia: PVCs Clinical Exercise duration: 04:00 min Highest Stage Achieved: Exercise capacity: n/a METs Stress ECG Conclusion NO SYMPTOMS OCC PVC NO SIGNIFICANT ST CHANGES UMREMARKABLE LEXISCAN STRESS MYOVIEW IMAGES REPORTED SEPARATELY Test Summary REST 02:20 . . 92 . 125/ 55 . . Stage 1 01:00 . . 79 . . . . Stage 2 01:00 . . 96 . . . . Stage 3 01:00 . . 88 . 122/ 45 . . Stage 4 01:00 . . 87 . 120/ 57 . . Stage 4 01:04 . . 91 . 120/ 57 . Stop exercise at 04:04 RECOVERY 01:00 . . 92 . 101/ 50 . . RECOVERY 02:00 . . 89 . 101/ 50 . . RECOVERY 03:00 . . 102 . 106/ 58 . . RECOVERY 04:00 . . 89 . 106/ 58 . . RECOVERY 05:00 . . 99 . 106/ 58 . . RECOVERY 05:46 . . 113 . 120/ 54 . . Electronically signed by : Yamileth Heath, 12/11/2022 17:35:10
--- NOTE | 2022-12-09 07:15 | NM_ITS ---
APPROVED REPORT Exam: Nuclear Stress Test Indication: hypertension..diabets..high cholesterol..family hx..palpitations..fatigue Patient Location: Outpatient Stress Tech: Rita Pinto MA Tech:Thelma Kay MARIOLAJarrell RT(R)(N) Ht: 6 ft 0 in Wt: 400 lbs HR: 92 bpm BP: 125/55 mmHg BSA: 2.86 m2 Rhythm: Atrial fibrillation TID: 0.97 History: hypertension..diabets..high cholesterol..family hx..palpitations..fatigue Procedure: Patient received 0.4 mg of intravenous Lexiscan, resting heart rate 92 bpm, resting blood pressure 125/55 mmHg, with Lexiscan maximum heart rate achieved was 115 bpm which is 85 % of the maximum predicted heart rate and blood pressure was 125/55 mmHg. With Lexiscan, patient denied any complaint of chest pain. The patient was not able to lay on his abdomen. Cardiac Stress and Resting SPECT Images: Cardiac Stress and Resting SPECT images were obtained using technetium 99m Myoview 31.5 mCi stress and 10.20 mCi at rest. The patient was not able to lie on his abdomen, and therefore prone stress imaging could not be performed. Also, raw images demonstrate significant motion and GI radiotracer overlap with the cardiac border. This may significantly affect the diagnostic interpretation of the study findings. Resting and stress imaging demonstrate a small-sized, moderate, reversible perfusion defect in the distal lateral LV wall. Gated imaging demonstrates mild reduction in global and regional LV systolic function. LVEF is calculated at 45%. Conclusion: The patient was not able to lie on his abdomen, and therefore prone stress imaging could not be performed. Also, raw images demonstrate significant motion and GI radiotracer overlap with the cardiac border. This may significantly affect the diagnostic interpretation of the study findings. Resting and stress imaging demonstrate a small-sized, moderate, reversible perfusion defect in the distal lateral LV wall. Gated imaging demonstrates mild reduction in global and regional LV systolic function. LVEF is calculated at 45%. Electronically signed by : Yamileth Heath, 12/11/2022 17:40:11
== END ==
LOC: RAD 07:15
PROVIDERS: PCP Family Medicine; Visit Provider Internal Medicine
DX: E11.9 Type 2 diabetes mellitus without complications (principal); E66.01 Morbid (severe) obesity due to excess calories; E78.5 Hyperlipidemia, unspecified; I10 Essential (primary) hypertension; I48.91 Unspecified atrial fibrillation; K92.1 Melena; R94.31 Abnormal electrocardiogram [ECG] [EKG]; G45.8 Other transient cerebral ischemic attacks and related syndromes; Z79.4 Long term (current) use of insulin
CPT/HCPCS: 78452; 93017; A9502; J2785

== ENCOUNTER → 2022-12-18 12:41 | Outpatient (CLI) | payer MEDICARE, SELFPAY ==
--- NOTE | 2022-12-18 12:44 | CA_ITS ---
APPROVED REPORT EXAM: Comprehensive 2D, Doppler, and color-flow Echocardiogram Journeyman Operator Assistant: SANDRA Aguilar, RVS Ht: 6 ft 2 in Wt: 400lbs BSA: 2.92 HR: 89 bpm BP: 113/59 mmHg Rhythm: Atrial Fibrillation Indications: New onset Afib, abn ekg, obesity, htn, hld, dm, wheelchair dependent. Echo Enhancing Agent Comments: Technically limited exam due to patient facors, patient scanned upright in wheelchair 2D Dimensions IVSd 1.01 cm LVEF (Visual) 45.10 % PWd 1.08 cm LA Volume 105.50 mL LVDd 5.59 cm LA Volume Index 35.30 mL/m2 (M/F) 16-34 LVDs 4.32 cm Aortic Root 3.24 cm Left Atrium 4.30 cm LVOT 2.02 cm (M/F) 1.5-2.5 M-Mode Dimensions RVDd 2.58 cm (0.9-2.6) LA Diam 5.29 cm (1.9-4.0) LVDd 5.21 cm (3.5-5.7) Ao Diam 3.67 cm (2.0-3.7) LVDs 3.67 cm (3.5-5.7) IVSd 1.05 cm (0.6-1.1) PWd 1.25 cm (0.6-1.1) EF (Teich) 56.20% EPSs 0.65 cm FS 29.60% EDV (Teich) 130.10 mL TAPSE 1.55 (<1.7) ESV (Teich) 57.00 mL LV Diastology E Decel Time 163.00 (160-240 msec) E/A Ratio 5.28 MED E' 8.40 (< 7 cm/sec) MED A' 4.70 cm/s E'/MED E' Ratio 14.64 (>14) LAT E' 10.20 (<10 cm/sec) LAT A' 3.00 cm/s E/LAT E' Ratio 12.06 (>14) Pulm Vein s 28.00 cm/sec Aortic Valve LVOT Max 59.00 (70-110 cm/s) LVOT VTI 10.37 cm AoV Peak Josue. 133.00 (50-130 cm/s) AO Peak GR. 7.10 mmHg AO Mean GR. 3.50 (<5 mmHg) AO VTI 24.43 (18-25 cm) MARITZA (VTI) 1.36 (2.5-4.5 cm2) Mitral Valve MV A Velocity 23.00 (40-130 cm/s) E/A Ratio 5.28 MV Decel. Time 163.00 (160-240 ms) Pulmonary Valve PV Peak Velocity 67.00 (50-150 cm/s) NC End VMAX 225.00 cm/s Tricuspid Valve TR P. Velocity 305.00 cm/s RAP Estimate 10.00 mmHg RVSP 47.20 mmHg Left Ventricle The left ventricle is normal size. Left ventricular systolic function is mildly decreased. There is increased LV wall thickness. Mild global hypokinesis is present. There is moderate hypokinesis of the anterior and anteroseptal LV sahni. Grade III diastolic dysfunction is present. LVEF is 45-50%. Right Ventricle Right ventricle is moderately dilated. Right ventricle is mildly hypokinetic. Atria Left atrium is moderately dilated. Right atrium is severely dilated. Aortic Valve The aortic valve is mildly thickened. There is no aortic valvular stenosis. Trace aortic regurgitation. Mitral Valve The mitral valve leaflets are mildly thickened. No evidence of mitral valve stenosis. Trace mitral regurgitation. Tricuspid Valve The tricuspid valve leaflets are thin and pliable. Mild tricuspid regurgitation. RVSP is 37 mmHg + RA pressure Pulmonic Valve The pulmonary valve is normal in structure. Mild pulmonic regurgitation. Great Vessels The aortic root is normal in size. The ascending aorta is normal in size measuring 3.7 cm (normal when adjusted for body surface area) The IVC is not well visualized. Pericardium There is no pericardial effusion. Other Information Study Quality: Technically Difficult. Technically limited study due to inability to position patient. Conclusion This is a technically difficult study due to poor accoustic windows and inability to position patient. Mildly reduced LV function. Grade III diastolic dysfunction. Anterior and anteroseptal LV wall motion abnormalities Moderate RV dilation with mild reduction in RV function. Biatrial enlargement. No significant valvular disease. Elevated RVSP = 37 mmHg + RA pressure Electroni
== END ==
LOC: RT 12:42
PROVIDERS: PCP Internal Medicine; Visit Provider Internal Medicine
DX: E11.9 Type 2 diabetes mellitus without complications (principal); E66.01 Morbid (severe) obesity due to excess calories; E78.5 Hyperlipidemia, unspecified; I10 Essential (primary) hypertension; I48.91 Unspecified atrial fibrillation; K92.1 Melena; R94.31 Abnormal electrocardiogram [ECG] [EKG]; G45.8 Other transient cerebral ischemic attacks and related syndromes
CPT/HCPCS: 93306

== ENCOUNTER 2023-01-04 08:19 | Day surgery (SDC) | payer MEDICARE, SELFPAY ==
[2023-01-04] VITALS (11 sets, daily range): BP systolic 100–137; BP diastolic 41–108; PULSE 66–90; RESP 17–22; TEMP 36.6; O2SAT 92–96; BMI 165.6; BMI 47.7; BMI 47.8
--- NOTE | 2023-01-04 07:11 | IR_ITS ---
APPROVED REPORT Patient Location: Outpatient PROCEDURES Left heart catheterization Left ventriculogram Selective coronary angiogram INDICATION Abnormal Myoview, Cardiomyopathy, Angina pectoris, Informed consent was obtained prior to the procedure. COMPLICATIONS None Estimated Blood Loss: Less than 10 mls TECHNIQUE One percent lidocaine used to anesthetize the right anterior aspect of the wrist. The right radial artery was accessed via the Seldinger technique. A 6 Frisian sheath was placed in the right radial artery. 2.5 mg of Verapamil, 800 mcg of nitroglycerin, 1mg Lidocaine and 5000 U Heparin were given through the arterial sheath. The papa catheter was also used to perform left heart catheterization, left ventriculogram and selective coronary angiogram. At the end of the procedure the sheath was removed good hemostasis was achieved using Traclet band, patient was transferred to the postop holding area in stable condition. 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 Risk factor modification for mild nonflow limiting coronary disease 2. Management of cardiomyopathy standard medications 3. Patient would likely benefit from diuresis Electronically signed by : Curtis Salazar MD 01/04/2023 10:50:06
[2023-01-04 09:20] LABS: Chloride 104 mmol/L (98-107); Potassium 5.3 mmoL/L (3.5-5.1); Sodium 142 mmol/L (136-145)
[2023-01-04 09:23] LABS: Basophils # 0.1 K/mm3 (0-0.2); Basophils % 0.5 % (0.1-2.0); Blood Urea Nitrogen 38 mg/dl (9-20); Creatinine Clearance Estimated 55 mL/min (50-200); Eosinophils # 0.3 K/mm3 (0.0-0.4); Eosinophils % 3.2 % (0.1-12.0); Estimated Glomerular Filt Rate 50 ml/min (>60); GFR (African American) 60 ML/MIN (>60); Hematocrit 33.5 % (42.0-52.0); Hemoglobin 9.7 g/dL (14.1-18.0); Lymphocytes # 1.4 K/mm3 (0.7-4.5); Lymphocytes % 14.6 % (10-50); Mean Corpuscular HGB Conc 28.9 g/dL (31.8-35.4); Mean Corpuscular Volume 76.1 fl (80-94); Monocytes # 0.7 K/mm3 (0.1-1.0); Monocytes % 6.7 % (1.7-9.3); Neutrophils # 7.4 K/mm3 (1.8-7.8); Platelet Count 341 K/mm3 (142-424); White Blood Count 9.8 K/mm3 (4.8-10.8)
[2023-01-04 09:24] LABS: Anion Gap 17.3 mEq/L (5-15); Calcium 9.5 mg/dl (8.4-10.2); Carbon Dioxide 26 mmol/L (22.0-30.0); Glucose 125 mg/dl (74-100)
--- NOTE | 2023-01-04 11:34 | ECG_ITS ---
APPROVED REPORT Exam: Resting ECG HR:72 bpm ECG Measurements Heart Rate 72 AXES QRSd 97 QRS 47 QT 393 T 89 QTc 416 Conclusion ATRIAL FIBRILLATION LOW QRS VOLTAGE [QRS DEFLECTION < 0.5/1.0 mV IN LIMB/CHEST LEADS] POSSIBLE ANTERIOR MYOCARDIAL INFARCTION , PROBABLY OLD [30 ms Q WAVE IN V3/V4, OR R < 0.2 mV IN V4] ABNORMAL ECG UNCONFIRMED REPORT Electronically signed by : Sage Gandara MD 01/05/2023 17:22:55
== END 2023-01-04 13:58 | disposition home or self-care (01) ==
PROVIDERS: PCP Family Medicine; Visit Provider Internal Medicine
DX: E11.9 Type 2 diabetes mellitus without complications (principal); E66.01 Morbid (severe) obesity due to excess calories; E78.5 Hyperlipidemia, unspecified; G45.9 Transient cerebral ischemic attack, unspecified; I10 Essential (primary) hypertension; I27.21 Secondary pulmonary arterial hypertension; I48.91 Unspecified atrial fibrillation; K92.1 Melena; R06.00 Dyspnea, unspecified; R93.1 Abnormal findings on diagnostic imaging of heart and coronary circulation; R94.30 Abnormal result of cardiovascular function study, unspecified; R94.31 Abnormal electrocardiogram [ECG] [EKG]; I42.9 Cardiomyopathy, unspecified; I25.118 Atherosclerotic heart disease of native coronary artery with other forms of angina pectoris
CPT/HCPCS: 80048; 85025; 93005; 93458; 99152; C1725; C1760; C1769; J1644; Q9967

== ENCOUNTER 2023-03-03 09:19 | Day surgery (SDC) | payer MEDICARE, SELFPAY ==
[2023-02-18 10:59] VITALS: BMI 47.0
[2023-03-03 10:03] VITALS: BP 100/79; PULSE 117; RESP 16; TEMP 36.1; O2SAT 99
--- NOTE | 2023-03-03 11:43 | HMH.SCOPE ---
Procedure: Date: 03/03/23 Patient Date of :: 1950 Procedure Performed:: Colonoscopy Indications:: The patient is a 72 year old who presents for colonoscopy evaluation of anemia. Performing Provider:: Papa Scott MD Referring Provider:: Willian Nice MD Sedation:: See RN records Procedure:: After placing the patient in the left lateral decubitus position, the colonoscopy was gently inserted into the rectum and under direct visualization advanced to the cecum which was identified by transillumination in the right lower quadrant, identification of the ileocecal valve, appendiceal orifice, and cecal strap. Color, texture, mucosa, and anatomy of the colon were carefully examined with the scope. Findings:: Anal canal: normal Rectum:Hemorrhoids Sigmoid colon: Diverticulosis. Polyp 6 mm in size. Removed with cold snare polypectomy. Fair to poor bowel preparation Descending colon: Within proximal descending colon there was a large malignant appearing lesion that occupied the lumen of the colon. Unable to pass the colonoscope past this area. Multiple biopsies obtained. Endoscopic marker was injected adjacent to the mass lesion. Preparation was fair. Impression: Polyp of sigmoid colon Malignant appearing mass lesion of the proximal descending colon Difficulty colonoscopy secondary to patient body habitus/morbid obesity Recommendations:: Await pathology results Patient will need CT chest, abdomen, and pelvis, CEA Refer to surgeon and oncology Complications:: none Estimated blood obtained (mL): 0 Colonoscopy Component Colonoscopy Component Was a colonoscopy performed during today's procedure?: Yes Recommended follow up colonoscopy of at least 10 years?: Yes
[2023-03-03 11:48] VITALS: BP 95/47; PULSE 100; RESP 16; TEMP 36.1; O2SAT 98
--- NOTE | 2023-03-03 11:49 | HMH.SCOPE ---
Procedure: Date: 03/03/23 Patient Date of :: 1950 Procedure Performed:: EGD Indications:: Anemia Performing Provider:: Papa Scott MD Referring Provider:: Willian Nice MD Sedation:: See RN records Procedure:: The gastroscope was gently passed through the incisoral orifice into the oral cavity and under direct visualization the esophagus was intubated. The endoscope was passed down the esophagus, through the stomach, and into the duodenum. Color, texture, mucosa, and anatomy of the esophagus, stomach, and duodenum were carefully examined with the scope. Findings:: Oropharynx: normal Esophagus: normal EG Junction: intact at 40 cm Cardia: normal Fundus: normal Body: normal Antrum: normal Duodenal bulb: normal Duodenum (second and third portion): normal Recommendations:: Move forward to colonoscopy for evaluation of anemia Complications:: none Estimated blood obtained (mL): 0 Colonoscopy Component Colonoscopy Component Was a colonoscopy performed during today's procedure?: No
[2023-03-03 11:58] VITALS: BP 125/68; PULSE 97; RESP 16; O2SAT 96
[2023-03-03 12:08] VITALS: BP 110/77; PULSE 91; RESP 16; O2SAT 97
[2023-03-03 12:18] VITALS: BP 129/68; PULSE 85; RESP 16; O2SAT 97
[2023-03-04 07:29] LABS: POC Glucose,Bedside 130 (70-110)
== END 2023-03-03 12:20 | disposition home or self-care (01) ==
PROVIDERS: PCP Family Medicine; Visit Provider Internal Medicine
PROC: 0DJ08ZZ Inspection of Upper Intestinal Tract, Via Natural or Artificial Opening Endoscopic (ICD-10-PCS; CPT 43235; principal; 2023-03-03 10:30)
DX: C18.6 Malignant neoplasm of descending colon (principal); D12.5 Benign neoplasm of sigmoid colon; D64.9 Anemia, unspecified; K64.8 Other hemorrhoids; K57.30 Diverticulosis of large intestine without perforation or abscess without bleeding; E66.01 Morbid (severe) obesity due to excess calories; E11.9 Type 2 diabetes mellitus without complications
CPT/HCPCS: 43235; 45385; 82962; 88305; 88341; 88342

== ENCOUNTER → 2023-03-11 07:43 | Outpatient (CLI) | payer MEDICARE, SELFPAY ==
--- NOTE | 2023-03-11 08:03 | CT_ITS ---
FINAL REPORT CLINICAL HISTORY: colon mass COMPARISON: None FINDINGS: Axial CT images of the chest were obtained with contrast. Coronal reformatted images were also obtained. This study was performed with techniques to keep radiation doses as low as reasonably achievable, (ALARA). Individualized dose reduction techniques using automated exposure control or adjustment of mA and/or KV according to the patients' size were employed. There are small mediastinal nodes. No axillary mass or adenopathy is identified. Cardiomegaly is noted. There are patchy pulmonary ground-glass opacities which may represent edema or atypical pneumonia. IMPRESSION: Patchy pulmonary ground-glass opacities may represent edema or atypical pneumonia. Small mediastinal nodes. Reviewed, Interpreted and Dictated by Delmar Yoder III, MD Transcribed by Estrella Lenz Authenticated and . [facility]
--- NOTE | 2023-03-11 08:03 | CT_ITS ---
FINAL REPORT CLINICAL HISTORY: colon mass COMPARISON: None FINDINGS: CT OF THE ABDOMEN AND PELVIS WITH CONTRAST Axial CT images of the abdomen and pelvis were obtained after the administration of IV contrast. Coronal reformatted images were also obtained and reviewed. This study was performed with techniques to keep radiation doses as low as reasonably achievable (ALARA). Individualized dose reduction techniques using automated exposure control or adjustment of mA and/or kV according to the patient's size were employed. Abdomen: The liver has an unremarkable appearance, without evidence of mass or biliary ductal dilatation. The spleen is unremarkable. No adrenal mass is present. The pancreas has an unremarkable appearance. There is mild renal scarring. The aorta is normal in caliber. No mass or abnormal fluid collection is seen. Pelvis: The appendix is not well-visualized. The urinary bladder is unremarkable. No inflammatory process is seen. There is abnormal wall thickening of the cecum and ascending colon which likely represents neoplasm or inflammation. There is a 19 mm lymph node medial to the cecum. There are several other smaller lymph nodes in this region. This could be metastatic adenopathy or possibly reactive. IMPRESSION: Mass involving the cecum and ascending colon worrisome for neoplasm, less likely inflammatory. Adenopathy medial to the cecum worrisome for metastatic adenopathy. Reviewed, Interpreted and Dictated by Delmar Yoder III, MD Transcribed by Estrella Lenz Authenticated and [facility]
[2023-03-11 08:38] LABS: Anion Gap 17.2 mEq/L (5-15); Blood Urea Nitrogen 22 mg/dl (9-20); Carbon Dioxide 23 mmol/L (22.0-30.0); Chloride 106 mmol/L (98-107); Estimated Glomerular Filt Rate 60 ml/min (>60); GFR (African American) 72 ML/MIN (>60); Glucose 111 mg/dl (74-100); Potassium 5.2 mmoL/L (3.5-5.1); Sodium 141 mmol/L (136-145)
[2023-03-11 09:46] LABS: Blood Urea Nitrogen 23 mg/dl (9-20); Estimated Glomerular Filt Rate 66 ml/min (>60); GFR (African American) 80 ML/MIN (>60)
== END ==
LOC: RAD 07:45
PROVIDERS: Physician Assistant; PCP Family Medicine; Visit Provider Internal Medicine
DX: E11.9 Type 2 diabetes mellitus without complications (principal); E66.01 Morbid (severe) obesity due to excess calories; E78.5 Hyperlipidemia, unspecified; I10 Essential (primary) hypertension; I25.10 Atherosclerotic heart disease of native coronary artery without angina pectoris; I27.21 Secondary pulmonary arterial hypertension; I48.20 Chronic atrial fibrillation, unspecified; I50.20 Unspecified systolic (congestive) heart failure; K92.1 Melena; R06.00 Dyspnea, unspecified; R93.1 Abnormal findings on diagnostic imaging of heart and coronary circulation; R94.31 Abnormal electrocardiogram [ECG] [EKG]; Z01.818 Encounter for other preprocedural examination; G45.8 Other transient cerebral ischemic attacks and related syndromes; Z68.42 Body mass index [BMI] 45.0-49.9, adult; Z79.4 Long term (current) use of insulin
CPT/HCPCS: 36415; 71260; 74177; 80048; 82565; 84520; Q9967

== ENCOUNTER 2023-04-24 11:06 | Emergency (ER) | payer MEDICARE, SELFPAY ==
[2023-04-24 11:08] VITALS: BP 106/58; PULSE 90; RESP 20; TEMP 36.6; O2SAT 100; BMI 45.6
--- NOTE | 2023-04-24 11:16 | XR_ITS ---
PROCEDURE INFORMATION: Exam: XR Left Forearm Exam date and time: 04/24/2023 12:07 PM Age: 73 years old Clinical indication: Pain; Elbow; Left; Additional info: Fall, pain TECHNIQUE: Imaging protocol: Radiologic exam of the left forearm. Views: 2 views. COMPARISON: CR XR ELBOW LT MIN 3V 04/24/2023 12:07 PM FINDINGS: Bones/joints: There is no evidence of acute fracture in any of the visualized osseous structures.. There is no evidence of malalignment or dislocation of any visualized joint. Degenerative changes in the elbow and in the radial carpal joint Soft tissues: Normal. IMPRESSION: 1. There is no evidence of acute fracture in any of the visualized osseous structures.. 2. There is no evidence of malalignment or dislocation of any visualized joint.
--- NOTE | 2023-04-24 11:16 | XR_ITS ---
PROCEDURE INFORMATION: Exam: XR Left Femur Exam date and time: 04/24/2023 12:07 PM Age: 73 years old Clinical indication: Pain; Hip; Left; Additional info: Fall, pain TECHNIQUE: Imaging protocol: Radiologic exam of the left femur. Views: 2 views. COMPARISON: CR XR HIP LT 2-3V W/PELVIS 04/24/2023 12:07 PM FINDINGS: Bones/joints: No femoral shaft fracture.. The medial tibial plateau is not seen well. If acute fracture is suspected in this region, recommend dedicated images of the knee. Degenerative changes in the patellofemoral joint Soft tissues: Unremarkable. IMPRESSION: 1. No femoral shaft fracture.. 2. The medial tibial plateau is not seen well. If acute fracture is suspected in this region, recommend dedicated images of the knee.
--- NOTE | 2023-04-24 11:16 | XR_ITS ---
PROCEDURE INFORMATION: Exam: XR Left Humerus Exam date and time: 04/24/2023 12:07 PM Age: 73 years old Clinical indication: Pain; Upper arm and elbow; Left; Additional info: Fall, pain TECHNIQUE: Imaging protocol: Radiologic exam of the left humerus. Views: 2 or more views. COMPARISON: CR XR ELBOW LT MIN 3V 04/24/2023 12:07 PM FINDINGS: Bones/joints: Degenerative changes in the acromioclavicular joint and glenohumeral joint. There is no evidence of acute fracture.There is no evidence of malalignment or dislocation. Specifically No fracture of the humeral shaft Soft tissues: Normal. IMPRESSION: There is no evidence of acute fracture.There is no evidence of malalignment or dislocation.
--- NOTE | 2023-04-24 11:16 | XR_ITS ---
PROCEDURE INFORMATION: Exam: XR Left Hip Exam date and time: 04/24/2023 12:07 PM Age: 73 years old Clinical indication: Hip pain; Left hip; Additional info: Fall, pain TECHNIQUE: Imaging protocol: Radiologic exam of the left hip. Views: 2 or 3 views hip with pelvis when performed. COMPARISON: CT ABDOMEN PELVIS W CON 03/11/2023 9:04 AM FINDINGS: Bones/joints: Degenerative changes in both hips. There is no evidence of acute fracture in any of the visualized osseous structures.. There is no evidence of malalignment or dislocation of any visualized joint. Degenerative changes in the sacroiliac joints and lumbar spine Soft tissues: Unremarkable. IMPRESSION: 1. There is no evidence of acute fracture in any of the visualized osseous structures.. 2. There is no evidence of malalignment or dislocation of any visualized joint.
--- NOTE | 2023-04-24 11:16 | CT_ITS ---
PROCEDURE INFORMATION: Exam: CT Cervical Spine Without Contrast Exam date and time: 04/24/2023 12:07 PM Age: 73 years old Clinical indication: Injury or trauma; Fall; Blunt trauma; Additional info: Fall >65 TECHNIQUE: Imaging protocol: Computed tomography of the cervical spine without contrast. Radiation optimization: All CT scans at this facility use at least one of these dose optimization techniques: automated exposure control; mA and/or kV adjustment per patient size (includes targeted exams where dose is matched to clinical indication); or iterative reconstruction. REPORTING DATA: Count of CT and Cardiac NM exams in prior 12 months: This patient has received 2 known CTs and 0 known cardiac nuclear medicine studies in the 12 months prior to the current study. COMPARISON: CT HEAD/BRAIN WO CON 04/24/2023 11:59 AM FINDINGS: Bones/joints: No acute fracture of the cervical spine. No subluxation or dislocation of the cervical spine. Intervertebral disc space narrowing C5 through C7 may represent degenerative disc disease.. Anterior osteophyte formation C5 through C7. Posterior osteophyte formation C5 through C7. Degenerative changes in the facets at multiple levels. Degenerative changes at C1/C2. 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 Thyroid: The thyroid is unremarkable Soft tissues: Unremarkable. IMPRESSION: 1. No acute fracture of the cervical spine. 2. No subluxation or dislocation of the cervical spine. 3. Intervertebral disc space narrowing C5 through C7 may represent degenerative disc disease..
--- NOTE | 2023-04-24 11:16 | XR_ITS ---
PROCEDURE INFORMATION: Exam: XR Left Elbow Exam date and time: 04/24/2023 12:07 PM Age: 73 years old Clinical indication: Pain; Elbow; Left; Additional info: Fall, pain TECHNIQUE: Imaging protocol: Radiologic exam of the left elbow. Views: 3 or more views. COMPARISON: CR XR FOREARM LT 2V 04/24/2023 12:07 PM FINDINGS: Bones/joints: There is no evidence of acute fracture in any of the visualized osseous structures.. There is no evidence of malalignment or dislocation of any visualized joint. Degenerative changes in the humeral ulnar joint and humeral radial joint Soft tissues: Normal. IMPRESSION: 1. There is no evidence of acute fracture in any of the visualized osseous structures.. 2. There is no evidence of malalignment or dislocation of any visualized joint.
--- NOTE | 2023-04-24 11:16 | CT_ITS ---
PROCEDURE INFORMATION: Exam: CT Head Without Contrast Exam date and time: 04/24/2023 11:59 AM Age: 73 years old Clinical indication: Injury or trauma; Fall; Blunt trauma (contusions or hematomas); Additional info: Fall >65 TECHNIQUE: Imaging protocol: Computed tomography of the head without contrast. Radiation optimization: All CT scans at this facility use at least one of these dose optimization techniques: automated exposure control; mA and/or kV adjustment per patient size (includes targeted exams where dose is matched to clinical indication); or iterative reconstruction. REPORTING DATA: Count of CT and Cardiac NM exams in prior 12 months: This patient has received 2 known CTs and 0 known cardiac nuclear medicine studies in the 12 months prior to the current study. COMPARISON: No relevant prior studies available. FINDINGS: Brain: No acute intracranial hemorrhage.. There is mild diffuse heterogeneity of the white matter attenuation, consistent with chronic white matter ischemic changes. Mild cerebral atrophy Cerebral ventricles: No ventriculomegaly. Paranasal sinuses: Visualized sinuses are unremarkable. No fluid levels. Mastoid air cells: Visualized mastoid air cells are well aerated. Orbital cavities: Absence of the lens in the right globe Bones/joints: Unremarkable. No acute fracture. Soft tissues: Unremarkable. IMPRESSION: No acute intracranial hemorrhage..
[2023-04-24 11:31] VITALS: BP 109/63; PULSE 73; O2SAT 100
--- NOTE | 2023-04-24 11:57 | HMH.EDGENADL ---
Discharge Plan Disposition Patient Disposition: Home, Self-Care Condition: Good Prescriptions Prescriptions: No Action Jardiance 10 mg tablet 10 mg PO DAILY 0RF metoprolol succinate 50 mg tablet extended release 24 hr 50 mg PO DAILY Qty: 90 3RF furosemide 40 mg tablet 40 mg PO DAILY PRN (Reason: Fluid) metformin 500 mg tablet extended release 24 hr See Rx Instructions .ROUTE .COMPLEX Qty: 270 0RF Hold Instructions: Resume on 01/07/23. Dose Instruction: TAKE 3 TABLETS ONE TIME DAILY Rx Instructions: TAKE 3 TABLETS ONE TIME DAILY (DME) pen needle, diabetic 1 EACH needle 1 each miscellaneous BID ferrous sulfate 325 mg (65 mg iron) Tablet 325 mg PO BID gabapentin 100 mg Capsule 100 mg PO TID lisinopril 20 MG tablet 20 mg PO DAILY Patient Comments: take 1 tablet by mouth once daily simvastatin 40 MG tablet 40 mg PO HS Patient Comments: TAKE 1 TABLET BY MOUTH ONCE DAILY AT BEDTIME insulin asp prt-insulin aspart 100 UNIT/ML insulin pen 25 unit SQ BID Rx Instructions: NOVOLOG MIX 70/30 FLEXPEN timolol maleate 5 ML bottle 0 ml ophthalmic (eye) DAILY Referrals Follow up/Referrals: Dionte Nice MD [Primary Care Provider] - See instructions Activity Restrictions/Add. Instructions Additional Instructions/Restrictions: You were evaluated in the emergency department today. Please keep your wound clean and dry. Do not submerge under any water. Your sutures will dissolve on their own. Monitor for any signs of infection, such as redness, warmth, or pus draining from the wound. Follow-up with your primary care provider for wound reassessment. Return to the emergency department for new or worsening symptoms. Clinical Impressions Clinical Impression: Fall Laceration of elbow, left Qualifiers: Encounter type: initial encounter Qualified Code(s): S51.012A - Laceration without foreign body of left elbow, initial encounter Instructions Patient Instructions: DI for Laceration Repair Discharge ED Provider: Edwina Casas General Adult HPI General Chief complaint: Wound/Laceration Stated complaint: chest pain Time Seen by Provider: 04/24/23 11:16 Mode of Arrival: EMS Source of Information: Patient Limitations: No Limitations Description of Symptoms (Recalled from ER Triage Doc. by RN): PT REPORTS FALL AT HOME, C/O LEFT ARM/ELBOW PAIN LACERATION. DENIES ANY OTHER PAIN OR STRIKING HEAD. TAKES DAILY ASA. PT ALERT AND ORIENTED History of Present Illness HPI narrative: This patient is a 73-year-old male with a history of morbid obesity, CAD, chronic atrial fibrillation, pulmonary hypertension, CHF, type 2 diabetes, hypertension, hyperlipidemia presented to the emergency department from home after a mechanical ground-level fall. He states that he fell when going to use the bathroom. He complains of left elbow pain and a laceration to his left elbow, but he denies any other concerns or complaints. He did not his head or lose consciousness. He states that he would not have come in here if he were not bleeding from his elbow. He states he takes aspirin but no other blood thinners. EMS reports that the patient was stable in route. They also note the patient was alert and oriented. Patient denies any other concerns or complaints at this time and states that he was well prior to the fall. He thinks his last tetanus shot was approximately 5 years ago. EMS notes fingerstick glucose in the 160s. Related Data Home Medications Medication Instructions Recorded Confirmed insulin aspar prot-insulin aspart 25 unit SQ BID Diabetes 05/28/19 02/23/23 100 unit/mL (70-30) subcutaneous pen lisinopril 20 mg tablet 20 mg PO DAILY High blood pressure 05/28/19 02/23/23 simvastatin 40 mg tablet 40 mg PO HS Cholesterol 05/28/19 02/23/23 timolol maleate 0.5 % eye drops 0 ml ophthalmic (eye) DAILY EYE 06/02/19 02/23/23 pen needle, herb
--- NOTE | 2023-04-24 12:04 | PC.NURSE ---
yogi cano and myself asssisted rad techs to move pt over to ct table
[2023-04-24 12:31] VITALS: BP 117/61; PULSE 76; RESP 18; O2SAT 98
[2023-04-24 13:01] VITALS: BP 83/62; PULSE 67; RESP 18; O2SAT 99
[2023-04-24 13:04] VITALS: BP 108/67; PULSE 64; O2SAT 98
[2023-04-24 13:27] VITALS: BP 108/67; PULSE 70; RESP 18; TEMP 36.7; O2SAT 99
== END 2023-04-24 13:30 | disposition home or self-care (01) ==
PROVIDERS: Emergency Provider Emergency Medicine; PCP Family Medicine
DX: S51.012A Laceration without foreign body of left elbow, initial encounter (principal); I48.20 Chronic atrial fibrillation, unspecified; I11.0 Hypertensive heart disease with heart failure; I50.20 Unspecified systolic (congestive) heart failure; I25.10 Atherosclerotic heart disease of native coronary artery without angina pectoris; I27.20 Pulmonary hypertension, unspecified; E11.9 Type 2 diabetes mellitus without complications; E78.5 Hyperlipidemia, unspecified; W18.30XA Fall on same level, unspecified, initial encounter
CPT/HCPCS: 12002; 70450; 72125; 73060; 73080; 73090; 73502; 73552; 90471; 90715; 99285